=== PATIENT | male | born 1985 | race Caucasian/White ===

== ENCOUNTER 2016-11-16 22:06 | Emergency (ER) | payer MEDICAID ==
[2016-11-16] MEDS ORDERED: Sodium Chloride 0.9% 1,000 ML IV ONE (22:11)
[2016-11-16] MEDS ORDERED: methylPREDNISolone Sodium Succinate 125 MG/2 ML SDV IVPUSH ONE (22:11)
--- NOTE | 2016-11-16 22:19 | EDM.PDOC ---
ED HPI GENERAL MEDICAL PROBLEM - General Chief Complaint: Allergic Reaction Stated Complaint: ALLERGIC REACTION [id number] Time Seen by Provider: 11/16/16 22:17 Source of Information: Reports: Patient History Limitations: Reports: No Limitations - History of Present Illness INITIAL COMMENTS - FREE TEXT/NARRATIVE: states has recurrent h/o allergic reaction with unknown etiology, states IV benadryl make him cranky and doesn't want it. 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 Upper Lip Pain Score (Numeric/FACES): 4 - Related Data Allergies Allergy/AdvReac Type Severity Reaction Status Date / Time amoxicillin Allergy Anaphylactic Verified 11/16/16 22:36 Shock diphenhydramine Allergy Anxiety Verified 11/16/16 22:39 [From Benadryl] ketorolac [From Toradol] Allergy Chest Verified 11/16/16 22:39 Tightness metoclopramide [From Reglan] Allergy Anxiety Verified 11/16/16 22:39 Penicillins Allergy Anaphylactic Verified 11/16/16 22:39 Shock zolpidem [From Ambien] Allergy Hallucinati Verified 11/16/16 22:39 ons Home Meds: Home Meds . [No Known Home Meds] 11/16/16 [History] ED ROS ALLERGIC REACTION - Review of Systems Review Of Systems: ROS reveals no pertinent complaints other than HPI. ED EXAM GENERAL NO PERIP PULSE - Physical Exam Exam: See Below Exam Limited By: No Limitations General Appearance: Alert, WD/WN, Mild Distress, Other (lip swelling) Ears: Hearing Grossly Normal Throat/Mouth: Normal Voice, No Airway Compromise, Other (lips swollen, no drooling) Head: Atraumatic Neck: Non-Tender, Full Range of Motion Respiratory/Chest: No Respiratory Distress, No Accessory Muscle Use. No: Retractions, Splinting Cardiovascular: Regular Rate, Rhythm GI/Abdominal: Soft, Non-Tender Neurological: Alert, Oriented, Normal Cognition, Normal Gait, No Motor/Sensory Deficits Psychiatric: Tearful Skin Exam: Warm, Dry, Normal Color Lymphatic: No Adenopathy Course - Vital Signs Last Recorded V/S: Last Vital Signs Temp 36.3 C 11/16/16 22:56 Pulse 77 11/16/16 23:34 Resp 16 11/16/16 23:34 BP 150/79 H 11/16/16 23:34 Pulse Ox 98 11/16/16 23:34 - Orders/Labs/Meds Meds: Medications Discontinued Medications Generic Name Dose Route Start Last Admin Trade Name Armen PRN Reason Stop Dose Admin Dexamethasone 12 mg 11/16/16 23:47 11/16/16 23:55 Dexamethasone IVPUSH 11/16/16 23:48 12 mg ONETIME ONE Administration Famotidine 20 mg 11/16/16 23:05 11/16/16 23:10 Pepcid IVPUSH 11/16/16 23:06 20 mg ONETIME ONE Administration Hydroxyzine HCl 25 mg 11/16/16 23:47 11/16/16 23:55 Atarax PO 11/16/16 23:48 25 mg ONETIME ONE Administration Sodium Chloride 1,000 mls @ 999 mls/hr 11/16/16 22:11 11/16/16 22:21 Normal Saline IV 11/16/16 23:11 999 mls/hr .BOLUS ONE Administration Methylprednisolone Sodium Succinate 125 mg 11/16/16 22:11 11/16/16 22:17 Solu-Medrol IVPUSH 11/16/16 22:12 125 mg ONETIME ONE Administration Morphine Sulfate 2 mg 11/16/16 22:24 11/16/16 22:33 Morphine IVPUSH 11/16/16 22:25 2 mg ONETIME ONE Administration Ondansetron HCl 4 mg 11/16/16 22:24 11/16/16 22:33 Zofran IV 11/16/16 22:25 4 mg ONETIME ONE Administration - Re-Assessments/Exams Free Text/Narrative Re-Assessment/Exam: 11/17/16 00:44 re-exam; s/p atarax = much better Departure - Departure Time of Disposition: 00:44 Disposition: Home, Self-Care 01 Condition: Good Clinical Impression: Allergic reaction Qualifiers: Encounter type: initial encounter Qualified Code(s): T78.40XA - Allergy, unspecified, initial encounter - Discharge Information Instructions: Angioedema, [id number] Forms: ED Department Discharge Additional Instructions: 1) don't scratch rash too much 2) 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
[2016-11-16] MEDS ORDERED: Ondansetron 4 MG/2 ML SDV IV ONE (22:24)
[2016-11-16] MEDS ORDERED: Morphine 2 MG/ML Syringe IVPUSH ONE (22:24)
[2016-11-16] MEDS ORDERED: Famotidine 20 MG/2 ML SDV IVPUSH ONE (23:05)
[2016-11-16] MEDS ORDERED: Dexamethasone 4 MG/ML SDV IVPUSH ONE (23:47)
[2016-11-16] MEDS ORDERED: hydrOXYzine HCl 25 MG Tab PO ONE (23:47)
[2016-11-17 00:58] VITALS: BP 135/90
== END 2016-11-17 00:55 | disposition home or self-care (01) ==
LOC: DL.ED 22:06
DX: R22.0 Localized swelling, mass and lump, head (principal); T45.0X5A Adverse effect of antiallergic and antiemetic drugs, initial encounter; Z88.1 Allergy status to other antibiotic agents; Z88.8 Allergy status to other drugs, medicaments and biological substances; Z88.0 Allergy status to penicillin
CPT/HCPCS: 96361; 96374; 96375; 99284; A9270; J1100; J2270; J2405; J2930; J7030; S0028

== ENCOUNTER 2016-11-26 18:19 | Emergency (ER) | payer MEDICAID ==
[2016-11-26] MEDS ORDERED: Sodium Chloride 0.9% 1,000 ML IV ONE (18:46)
[2016-11-26] MEDS ORDERED: Dexamethasone 4 MG/ML SDV IVPUSH ONE (18:46)
--- NOTE | 2016-11-26 18:51 | EDM.PDOC ---
ED HPI GENERAL MEDICAL PROBLEM - General Chief Complaint: Allergic Reaction Stated Complaint: LIPS, CHEEK SWELLING [id number] Time Seen by Provider: 11/26/16 18:47 Source of Information: Reports: Patient History Limitations: Reports: No Limitations - History of Present Illness INITIAL COMMENTS - FREE TEXT/NARRATIVE: gives recurrent h/o edema on lower lip & inner cheeks. denies anything new. his mother does have local inflammatory edema on tatoo sites. - Related Data Allergies Allergy/AdvReac Type Severity Reaction Status Date / Time amoxicillin Allergy Anaphylactic Verified 11/16/16 22:36 Shock diphenhydramine Allergy Anxiety Verified 11/26/16 18:25 [From Benadryl] ketorolac [From Toradol] Allergy Chest Verified 11/16/16 22:39 Tightness metoclopramide [From Reglan] Allergy Anxiety Verified 11/16/16 22:39 Penicillins Allergy Anaphylactic Verified 11/16/16 22:39 Shock zolpidem [From Ambien] Allergy Hallucinati Verified 11/16/16 22:39 ons Home Meds: Home Meds Codeine/Butalbital/ASA/Caffein [Fiorinal-Cod [id number]] 1 cap PO ASDIRECTED PRN 11/26/16 [History] Past Medical History HEENT History: Reports: Impaired Vision Cardiovascular History: Reports: Heart Murmur, Other (See Below) Other Cardiovascular History: Palpatations in past. Gastrointestinal History: Reports: GERD Musculoskeletal History: Reports: Fracture Other Musculoskeletal History: L4-L6 fx. ankles neck, wrist. hands, upper Rt. arm, fx skull. Neurological History: Reports: Brain Injury, Concussion, Head Trauma, Migraines Psychiatric History: Reports: ADHD, Anxiety, Depression, Mood Swings, Panic Attack Hematologic History: Reports: Blood Transfusion(s) - Past Surgical History GI Surgical History: Reports: Colon, Other (See Below) Other GI Surgeries/Procedures: 3 inches of colon removed as a child. Social & Family History - Family History Family Medical History: Noncontributory - Tobacco Use Smoking Status *Q: Current Some Day Smoker Years of Tobacco use: 20 Packs/Tins Daily: 1.5 Second Hand Smoke Exposure: No - Caffeine Use Caffeine Use: Reports: Soda, Other Other Caffeine Use: energy drinks. - Recreational Drug Use Recreational Drug Use: No ED ROS ALLERGIC REACTION - Review of Systems Review Of Systems: ROS reveals no pertinent complaints other than HPI. ED EXAM GENERAL NO PERIP PULSE - Physical Exam Exam: See Below Exam Limited By: No Limitations General Appearance: Alert, WD/WN, Mild Distress, Other (discomfort) Ears: Hearing Grossly Normal Throat/Mouth: Normal Voice, No Airway Compromise, Other (lower lip inner left cheek mild edema, no drooling) Head: Atraumatic Neck: Non-Tender, Full Range of Motion Respiratory/Chest: No Respiratory Distress Cardiovascular: Regular Rate, Rhythm GI/Abdominal: Soft, Non-Tender Neurological: Alert, Oriented, Normal Cognition, Normal Gait, No Motor/Sensory Deficits Psychiatric: Normal Affect, Normal Mood Skin Exam: Warm, Dry, Normal Color Lymphatic: No Adenopathy Course - Vital Signs Last Recorded V/S: Last Vital Signs Temp 36.2 C 11/26/16 18:23 Pulse 71 11/26/16 18:23 Resp 16 11/26/16 18:23 BP 135/98 H 11/26/16 18:23 Pulse Ox 100 11/26/16 18:23 - Orders/Labs/Meds Orders: Active Orders 24 hr Category Date Time Status hydrOXYzine HCl [Atarax] Med 11/26/16 21:34 Once 25 mg PO ONETIME ONE Medication Orders Hydroxyzine HCl (Atarax) 25 mg PO ONETIME ONE Stop: 11/26/16 21:35 Labs: Laboratory Tests 11/26/16 11/26/16 11/26/16 Range/Units 18:54 18:54 18:54 WBC 9.3 (5.0-10.0) 10^3/uL RBC 5.09 (4.6-6.2) 10^6/uL Hgb 14.7 (14.0-18.0) g/dL Hct 43.7 (40.0-54.0) % MCV 85.9 (80-100) fL MCH 28.9 (27.0-34.0) pg MCHC 33.6 (33.0-35.0) g/dL Plt Count 254 (150-450) 10^3/uL Neut % (Auto) 45.2 (42.2-75.2) % Lymph % (Auto) 39.8 (20.5-50.1) % [place] % (Auto) 9.3 H (2-8) % Eos % (Auto) 5.5 H (1.0-3.0) % Baso % (Auto) 0.2 (0.0-1.0) % Sodium 138 (135-145) mmol/L Potassium 4.2 (3.6-5.0) mmol/L Chloride 105 (101-111) mmol/L Carbon Dioxide 22.0 (21.0-31.0) mmol/L Anion Gap 15.2 BUN 19 H (7-18) mg/dL Creatinine 1.0 (0.6-1.3) mg/dL Est Cr Clr Drug Dosing TNP Estimated GFR (MDRD) > 60 BUN/Creatinine Ratio 19.00 Glucose 90 (74-105) mg/dL Calcium 8.7 (8.4-10.2) mg/dl Total Bilirubin 0.6 (0.2-1.0) mg/dL AST 24 (10-42) IU/L ALT 25 (10-60) IU/L Alkaline Phosphatase 65 (42-121) IU/L C-Reactive Protein 0.7 (0.0-1.3) mg/dL Total Protein 6.6 L (6.7-8.2) g/dl Albumin 3.7 (3.2-5.5) g/dl Globulin 2.9 Albumin/Globulin Ratio 1.28 Meds: Medications Generic Name Dose Route Start Last Admin Trade Name Freq PRN Reason Stop Dose Admin Hydroxyzine HCl 25 mg 11/26/16 21:34 Atarax PO 11/26/16 21:35 ONETIME ONE Discontinued Medications Generic Name Dose Route Start Last Admin Trade Name Freq PRN Reason Stop Dose Admin Dexamethasone 12 mg 11/26/16 18:46 11/26/16 18:57 Dexamethasone IVPUSH 11/26/16 18:47 12 mg ONETIME ONE Administration Sodium Chloride 1,000 mls @ 500 mls/hr 11/26/16 18:46 11/26/16 18:56 Normal Saline IV 11/26/16 20:45 500 mls/hr .BOLUS ONE Administration Methylprednisolone Sodium Succinate 125 mg 11/26/16 20:46 11/26/16 20:59 Solu-Medrol IVPUSH 11/26/16 20:47 125 mg ONETIME ONE Administration Morphine Sulfate 2 mg 11/26/16 20:25 11/26/16 20:40 Morphine IVPUSH 11/26/16 20:26 2 mg ONETIME ONE Administration Ondansetron HCl 4 mg 11/26/16 20:25 11/26/16 20:40 Zofran IV 11/26/16 20:26 4 mg ONETIME ONE Administration - Re-Assessments/Exams Free Text/Narrative Re-Assessment/Exam: 11/26/16 20:46 results discussed with pt who states lip swelling starting to return now. 11/26/16 21:35 feels somewhat better Departure - Departure Time of Disposition: 21:37 Disposition: Home, Self-Care 01 Condition: Good Clinical Impression: Angioedema Qualifiers: Encounter type: subsequent encounter Qualified Code(s): T78.3XXD - Angioneurotic edema, subsequent encounter - Discharge Information Instructions: Angioedema, [id number] Forms: ED Department Discharge Additional Instructions: 1) follow up at clinic or recheck if there is any change or concern rx given; atarax 25mg bid prn x 12 - My Orders Last 24 Hours: My Active Orders 11/26/16 21:34 hydrOXYzine HCl [Atarax] 25 mg PO ONETIME ONE - Assessment/Plan Last 24 Hours: My Active Orders 11/26/16 21:34 hydrOXYzine HCl [Atarax] 25 mg PO ONETIME ONE
[2016-11-26 18:57] VITALS: BP 135/98
[2016-11-26 19:20] LABS: CHLORIDE,CL 105 mmol/L (101-111); SODIUM,NA 138 mmol/L (135-145)
[2016-11-26] MEDS ORDERED: Morphine 2 MG/ML Syringe IVPUSH ONE (20:25)
[2016-11-26] MEDS ORDERED: Ondansetron 4 MG/2 ML SDV IV ONE (20:25)
[2016-11-26] MEDS ORDERED: methylPREDNISolone Sodium Succinate 125 MG/2 ML SDV IVPUSH ONE (20:46)
[2016-11-26] MEDS ORDERED: hydrOXYzine HCl 25 MG Tab PO ONE (21:34)
== END 2016-11-26 21:43 | disposition home or self-care (01) ==
LOC: DL.ED 18:19
DX: T78.3XXA Angioneurotic edema, initial encounter (principal); H54.7 Unspecified visual loss; K21.9 Gastro-esophageal reflux disease without esophagitis; F17.210 Nicotine dependence, cigarettes, uncomplicated; Z88.0 Allergy status to penicillin; Z88.1 Allergy status to other antibiotic agents; Z88.8 Allergy status to other drugs, medicaments and biological substances
CPT/HCPCS: 36415; 80053; 85025; 86140; 96361; 96374; 96375; 99282; A9270; J1100; J2270; J2405; J2930; J7030

== ENCOUNTER 2016-12-05 00:50 | Emergency (ER) | payer MEDICAID ==
[2016-12-05 01:02] VITALS: BP 147/103
[2016-12-05] MEDS ORDERED: hydrOXYzine HCl 25 MG Tab PO ONE (01:12)
--- NOTE | 2016-12-05 01:15 | EDM.PDOC ---
ED HPI GENERAL MEDICAL PROBLEM - General Chief Complaint: ENT Problem Stated Complaint: SWELLING IN MOUTH AND THROAT Time Seen by Provider: 12/05/16 01:05 Source of Information: Reports: Patient History Limitations: Reports: No Limitations - History of Present Illness INITIAL COMMENTS - FREE TEXT/NARRATIVE: This 30 yo male patient reports to the ED with swelling in the left side of his throat and in his tongue. The patient reports he started to notice swelling at about 2230 last night. The patient reports he has an appointment next Thursday with a provider at the clinic for continued evaluation and management (the patient does not know the name of the provider). Onset Date: 12/04/16 Onset Time: 22:30 Duration: Constant Location: Reports: Face, Neck Quality: Reports: Dull, Pressure Severity: Moderate Improves with: Reports: None Worsens with: Reports: None Associated Symptoms: Reports: No Other Symptoms Oral/Mouth Pain Score (Numeric/FACES): 4 - Related Data Allergies Allergy/AdvReac Type Severity Reaction Status Date / Time amoxicillin Allergy Anaphylactic Verified 12/05/16 00:56 Shock diphenhydramine Allergy Anxiety Verified 12/05/16 00:56 [From Benadryl] ketorolac [From Toradol] Allergy Chest Verified 12/05/16 00:56 Tightness metoclopramide [From Reglan] Allergy Anxiety Verified 12/05/16 00:56 Penicillins Allergy Anaphylactic Verified 12/05/16 00:56 Shock zolpidem [From Ambien] Allergy Hallucinati Verified 12/05/16 00:56 ons Home Meds: Home Meds Codeine/Butalbital/ASA/Caffein [Fiorinal-Cod [id number]] 1 cap PO ASDIRECTED PRN 11/26/16 [History] hydrOXYzine HCl [Atarax] 25 mg PO BID 12/05/16 [History] Past Medical History HEENT History: Reports: Impaired Vision Cardiovascular History: Reports: Heart Murmur, Other (See Below) Other Cardiovascular History: Palpatations in past. Gastrointestinal History: Reports: GERD Musculoskeletal History: Reports: Fracture Other Musculoskeletal History: L4-L6 fx. ankles neck, wrist. hands, upper Rt. arm, fx skull. Neurological History: Reports: Brain Injury, Concussion, Head Trauma, Migraines Psychiatric History: Reports: ADHD, Anxiety, Depression, Mood Swings, Panic Attack Hematologic History: Reports: Blood Transfusion(s) - Past Surgical History GI Surgical History: Reports: Colon, Other (See Below) Other GI Surgeries/Procedures: 3 inches of colon removed as a child. Social & Family History - Family History Family Medical History: Noncontributory - Tobacco Use Smoking Status *Q: Current Some Day Smoker Years of Tobacco use: 20 Packs/Tins Daily: 1.5 Second Hand Smoke Exposure: No - Caffeine Use Caffeine Use: Reports: Soda, Other Other Caffeine Use: energy drinks. - Recreational Drug Use Recreational Drug Use: No ED ROS ENT - Review of Systems Review Of Systems: ROS reveals no pertinent complaints other than HPI. ED EXAM, ENT - Physical Exam Exam: See Below Exam Limited By: No Limitations General Appearance: Alert, WD/WN, Mild Distress Eye Exam: Bilateral Eye: EOMI, Normal Inspection, PERRL Ears: Normal External Exam, Normal Canal, Hearing Grossly Normal, Normal TMs Nose: Normal Inspection, Normal Mucousa, No Blood Mouth/Throat: Normal Inspection, Normal Gums, Normal Lips, Normal Oropharynx, Normal Teeth, Other (no swelling noticed) Head: Atraumatic, Normocephalic Neck: Normal Inspection, Supple, Non-Tender, Full Range of Motion, Other (no swelling palpated) Respiratory/Chest: No Respiratory Distress, Lungs Clear, Normal Breath Sounds, No Accessory Muscle Use, Chest Non-Tender Cardiovascular: Normal Peripheral Pulses, Regular Rate, Rhythm, No Edema, No Gallop, No JVD, No Murmur, No Rub GI/Abdominal: Normal Bowel Sounds, Soft, Non-Tender, No Organomegaly, No Distention, No Abnormal Bruit, No Mass (Male) Exam: Deferred Rectal (Males) Exam: Deferred Back: Normal Inspection, Full Range of Motion Extremities: Normal Inspection, Normal Range of Motion, Non-Tender, No Pedal Edema, Normal Capillary Refill Neurological: Alert, Oriented, CN II-XII Intact, Normal Cognition, Normal Gait, Normal Reflexes, No Motor/Sensory Deficits Psychiatric: Normal Affect, Normal Mood Skin: Warm, Dry, Intact, Normal Color, No Rash Lymphatic: No Adenopathy Course - Vital Signs Last Recorded V/S: Last Vital Signs Temp 36.9 C 12/05/16 01:00 Pulse 90 12/05/16 01:00 Resp 20 12/05/16 01:00 BP 147/103 H 12/05/16 01:00 Pulse Ox 99 12/05/16 01:00 - Orders/Labs/Meds Meds: Medications Discontinued Medications Generic Name Dose Route Start Last Admin Trade Name Armen PRN Reason Stop Dose Admin Hydroxyzine HCl 25 mg 12/05/16 01:12 Atarax PO 12/05/16 01:13 ONETIME ONE Departure - Departure Time of Disposition: :13 Disposition: Home, Self-Care 01 Condition: Fair Clinical Impression: Angioedema Qualifiers: Encounter type: subsequent encounter Qualified Code(s): T78.3XXD - Angioneurotic edema, subsequent encounter - Discharge Information Forms: ED Department Discharge Care Plan Goals: The patient was advised of the examination results during the visit. The patient was given an oral dose of Atarax (25 mg) while in the ED. The patient was advised to follow-up with his primary care facility tomorrow for continued evaluation and further management. If the patient has any additional symptoms or concerns, the patient should visit his primary care facility or return to the emergency department.
== END 2016-12-05 01:24 | disposition home or self-care (01) ==
LOC: DL.ED 00:50
DX: T78.3XXD Angioneurotic edema, subsequent encounter (principal); H54.7 Unspecified visual loss; K21.9 Gastro-esophageal reflux disease without esophagitis; G43.909 Migraine, unspecified, not intractable, without status migrainosus; F17.210 Nicotine dependence, cigarettes, uncomplicated; Z88.1 Allergy status to other antibiotic agents; Z88.8 Allergy status to other drugs, medicaments and biological substances; Z88.0 Allergy status to penicillin
CPT/HCPCS: 99283; A9270

== ENCOUNTER 2016-12-11 05:05 | Emergency (ER) | payer MEDICAID ==
[2016-12-11] MEDS ORDERED: methylPREDNISolone Sodium Succinate 125 MG/2 ML SDV IVPUSH ONE (05:16)
[2016-12-11] MEDS ORDERED: Famotidine 20 MG/2 ML SDV IVPUSH ONE (05:17)
[2016-12-11] MEDS ORDERED: Sodium Chloride 0.9% 1,000 ML IV SCH (05:30)
[2016-12-11 05:53] LABS: CHLORIDE,CL 105 mmol/L (101-111); SODIUM,NA 140 mmol/L (135-145)
--- NOTE | 2016-12-11 06:04 | EDM.PDOC ---
<Mary Tao - Last Filed: 12/11/16 06:42> ED HPI GENERAL MEDICAL PROBLEM - General Chief Complaint: ENT Problem Stated Complaint: TONGUE IS SWOLLEN [id number] Time Seen by Provider: 12/11/16 05:20 Source of Information: Reports: Patient History Limitations: Reports: No Limitations - History of Present Illness INITIAL COMMENTS - FREE TEXT/NARRATIVE: ED with c/o of waking with tongue swelling at 4 am. Hx multiple similar episodes in past month. Undetermined cause. Has not changed iet or eaten any spicy food. Only medication is zantac. No respiratory difficulties. Pain with movement of tongue. No rash or itching Oral/Mouth Pain Score (Numeric/FACES): 4 - Related Data Allergies Allergy/AdvReac Type Severity Reaction Status Date / Time amoxicillin Allergy Anaphylactic Verified 12/11/16 05:10 Shock diphenhydramine Allergy Anxiety Verified 12/11/16 05:10 [From Benadryl] ketorolac [From Toradol] Allergy Chest Verified 12/11/16 05:10 Tightness metoclopramide [From Reglan] Allergy Anxiety Verified 12/11/16 05:10 Penicillins Allergy Anaphylactic Verified 12/11/16 05:10 Shock zolpidem [From Ambien] Allergy Hallucinati Verified 12/11/16 05:10 ons Home Meds: Home Meds Ranitidine HCl [Zantac 75] 75 mg PO DAILY 12/11/16 [History] Past Medical History HEENT History: Reports: Impaired Vision Cardiovascular History: Reports: Heart Murmur, Other (See Below) Other Cardiovascular History: Palpatations in past. Gastrointestinal History: Reports: GERD Musculoskeletal History: Reports: Fracture Other Musculoskeletal History: L4-L6 fx. ankles neck, wrist. hands, upper Rt. arm, fx skull. Neurological History: Reports: Brain Injury, Concussion, Head Trauma, Migraines Psychiatric History: Reports: ADHD, Anxiety, Depression, Mood Swings, Panic Attack Hematologic History: Reports: Blood Transfusion(s) - Infectious Disease History Infectious Disease History: Reports: Chicken Pox - Past Surgical History GI Surgical History: Reports: Colon, Other (See Below) Other GI Surgeries/Procedures: 3 inches of colon removed as a child. Social & Family History - Family History Family Medical History: Noncontributory - Tobacco Use Smoking Status *Q: Current Some Day Smoker Years of Tobacco use: 20 Packs/Tins Daily: 1.5 Tobacco Use Comment: vapor pen Second Hand Smoke Exposure: No - Caffeine Use Caffeine Use: Reports: Soda, Other Other Caffeine Use: energy drinks. - Recreational Drug Use Recreational Drug Use: No ED ROS ENT - Review of Systems Review Of Systems: ROS reveals no pertinent complaints other than HPI. ED EXAM, ENT - Physical Exam Exam: See Below Exam Limited By: No Limitations General Appearance: Alert, Mild Distress Eye Exam: Bilateral Eye: EOMI Ears: Normal External Exam, Normal TMs Nose: Normal Inspection Mouth/Throat: Muffled Voice, Other (tongue swollen, geopgraphic). No: Normal Inspection, Lip Swelling Head: Atraumatic, Normocephalic Neck: Normal Inspection, Non-Tender, Full Range of Motion Respiratory/Chest: No Respiratory Distress, Lungs Clear, Normal Breath Sounds Cardiovascular: Normal Peripheral Pulses, Regular Rate, Rhythm, Tachycardia Extremities: Normal Inspection Neurological: Alert, Oriented, Normal Cognition Psychiatric: Anxious (mild) Skin: Warm, Dry, Intact, Normal Color Course - Vital Signs Last Recorded V/S: Last Vital Signs Temp 36.3 C 12/11/16 07:33 Pulse 75 12/11/16 07:33 Resp 18 12/11/16 07:33 BP 141/99 H 12/11/16 07:33 Pulse Ox 100 12/11/16 07:33 - Orders/Labs/Meds Orders: Active Orders 24 hr Category Date Time Status Sodium Chloride 0.9% [Normal Saline] 1,000 ml Med 12/11/16 05:30 Active IV ASDIRECTED Medication Orders Sodium Chloride (Normal Saline) 1,000 mls @ 999 mls/hr IV ASDIRECTED ABBY Last Admin: 12/11/16 05:26 Dose: 999 mls/hr Labs: Laboratory Tests 12/11/16 12/11/16 12/11/16 Range/Units 05:28 05:28 05:28 WBC 7.8 (5.0-10.0) 10^3/uL RBC 5.10 (4.6-6.2) 10^6/uL Hgb 14.8 (14.0-18.0) g/dL Hct 43.9 (40.0-54.0) % MCV 86.1 (80-100) fL MCH 29.0 (27.0-34.0) pg MCHC 33.7 (33.0-35.0) g/dL Plt Count 274 (150-450) 10^3/uL Neut % (Auto) 57.8 (42.2-75.2) % Lymph % (Auto) 25.9 (20.5-50.1) % [place] % (Auto) 7.5 (2-8) % Eos % (Auto) 8.4 H (1.0-3.0) % Baso % (Auto) 0.4 (0.0-1.0) % Sodium 140 (135-145) mmol/L Potassium 4.2 (3.6-5.0) mmol/L Chloride 105 (101-111) mmol/L Carbon Dioxide 24.0 (21.0-31.0) mmol/L Anion Gap 15.2 BUN 13 (7-18) mg/dL Creatinine 1.2 (0.6-1.3) mg/dL Est Cr Clr Drug Dosing 92.94 mL/min Estimated GFR (MDRD) > 60 BUN/Creatinine Ratio 10.83 Glucose 97 (74-105) mg/dL Calcium 9.1 (8.4-10.2) mg/dl Total Bilirubin 1.3 H (0.2-1.0) mg/dL AST 45 H (10-42) IU/L ALT 57 (10-60) IU/L Alkaline Phosphatase 70 (42-121) IU/L C-Reactive Protein 0.6 (0.0-1.3) mg/dL Total Protein 7.0 (6.7-8.2) g/dl Albumin 4.0 (3.2-5.5) g/dl Globulin 3.0 Albumin/Globulin Ratio 1.33 Meds: Medications Generic Name Dose Route Start Last Admin Trade Name Freq PRN Reason Stop Dose Admin Sodium Chloride 1,000 mls @ 999 mls/hr 12/11/16 05:30 12/11/16 05:26 Normal Saline IV 999 mls/hr ASDIRECTED ABBY Administration Discontinued Medications Generic Name Dose Route Start Last Admin Trade Name Freq PRN Reason Stop Dose Admin Al Hydroxide/Mg Hydroxide 15 ml 12/11/16 06:11 12/11/16 06:17 Gi Cocktail PO 12/11/16 06:12 15 ml ONETIME ONE Administration Famotidine 20 mg 12/11/16 05:17 12/11/16 05:26 Pepcid IVPUSH 12/11/16 05:18 20 mg ONETIME ONE Administration Methylprednisolone Sodium Succinate 125 mg 12/11/16 05:16 12/11/16 05:27 Solu-Medrol IVPUSH 12/11/16 05:17 125 mg ONETIME ONE Administration - Re-Assessments/Exams Free Text/Narrative Re-Assessment/Exam: 12/11/16 06:42 Decreased pain in tongue with viscous Lidocaine. No change in swelling. Airway patent, tolerating ice chips 12/11/16 06:[address] Luna with shift change Departure - Departure Disposition: Home, Self-Care 01 Clinical Impression: Angioedema Qualifiers: Encounter type: subsequent encounter Qualified Code(s): T78.3XXD - Angioneurotic edema, subsequent encounter - Discharge Information Forms: ED Department Discharge Additional Instructions: Rest Monitor any items placed into mouth Take the medication ( Hydroxyzine 50mg TID) # 30 F/U w/ PCP for referral to specialist <Kendrick Luna - Last Filed: 12/11/16 07:44> Departure - Departure Time of Disposition: 07:41 Condition: Good
[2016-12-11] MEDS ORDERED: GI Cocktail Oral Solution 30 ML PO ONE (06:11)
[2016-12-11 07:34] VITALS: BP 141/99
== END 2016-12-11 08:04 | disposition home or self-care (01) ==
LOC: DL.ED 05:05
DX: T78.3XXD Angioneurotic edema, subsequent encounter (principal); F17.210 Nicotine dependence, cigarettes, uncomplicated; Z88.1 Allergy status to other antibiotic agents; Z88.0 Allergy status to penicillin; Z88.8 Allergy status to other drugs, medicaments and biological substances
CPT/HCPCS: 36415; 80053; 85025; 86140; 96361; 96374; 96375; 99283; A9270; J2930; J7030; S0028

== ENCOUNTER 2016-12-26 17:29 | Emergency (ER) | payer MEDICAID ==
[2016-12-26] MEDS ORDERED: methylPREDNISolone Sodium Succinate 125 MG/2 ML SDV IVPUSH ONE ×2 (17:39→18:57)
--- NOTE | 2016-12-26 18:13 | EDM.PDOC ---
<Oneil Tidwell M - Last Filed: 12/26/16 18:32> ED HPI GENERAL MEDICAL PROBLEM - General Chief Complaint: Allergic Reaction Stated Complaint: SWELLING ON LIP AND BACK OF THROAT, [id number] Time Seen by Provider: 12/26/16 18:02 Source of Information: Reports: Patient History Limitations: Reports: No Limitations - History of Present Illness INITIAL COMMENTS - FREE TEXT/NARRATIVE: This 31 yo male patient returns to the ED with swelling of his right lower lip and posterior throat. The patient reports he has been taking his Hydroxyzine on a regular basis. The patient report he was at home all day, ate a couple of hot dogs and drank a Sunkist today. The patient has been seen in the ED 2 times this month with similar symptoms. The patient reports he is still waiting to be seen by an communicable disease specialist. The patient reports he took some ibuprofen earlier today for the pain in his right lip, but got no relief. Onset: Today Duration: Hour(s):, Constant, Getting Worse Location: Reports: Face, Neck Quality: Reports: Ache, Pressure Severity: Moderate Improves with: Reports: None Worsens with: Reports: None Associated Symptoms: Reports: No Other Symptoms Right Lip Pain Score (Numeric/FACES): 8 Left Throat Pain Score (Numeric/FACES): 8 - Related Data Allergies Allergy/AdvReac Type Severity Reaction Status Date / Time amoxicillin Allergy Anaphylactic Verified 12/11/16 05:10 Shock diphenhydramine Allergy Anxiety Verified 12/11/16 05:10 [From Benadryl] ketorolac [From Toradol] Allergy Chest Verified 12/11/16 05:10 Tightness metoclopramide [From Reglan] Allergy Anxiety Verified 12/11/16 05:10 Penicillins Allergy Anaphylactic Verified 12/11/16 05:10 Shock zolpidem [From Ambien] Allergy Hallucinati Verified 12/11/16 05:10 ons vicous lidocaine AdvReac Intermediate Vomiting Uncoded 12/26/16 18:29 Home Meds: Home Meds Ranitidine HCl [Zantac 75] 75 mg PO BID 12/11/16 [History] hydrOXYzine HCl [Atarax] 1 tab PO BID 12/26/16 [History] Past Medical History HEENT History: Reports: Impaired Vision Cardiovascular History: Reports: Heart Murmur, Other (See Below) Other Cardiovascular History: Palpatations in past. Gastrointestinal History: Reports: GERD Musculoskeletal History: Reports: Fracture Other Musculoskeletal History: L4-L6 fx. ankles neck, wrist. hands, upper Rt. arm, fx skull. Neurological History: Reports: Brain Injury, Concussion, Head Trauma, Migraines Psychiatric History: Reports: ADHD, Anxiety, Depression, Mood Swings, Panic Attack Hematologic History: Reports: Blood Transfusion(s) - Infectious Disease History Infectious Disease History: Reports: Chicken Pox - Past Surgical History GI Surgical History: Reports: Colon, Other (See Below) Other GI Surgeries/Procedures: 3 inches of colon removed as a child. Social & Family History - Family History Family Medical History: Noncontributory - Tobacco Use Smoking Status *Q: Current Some Day Smoker Years of Tobacco use: 20 Packs/Tins Daily: 1.5 Second Hand Smoke Exposure: No - Caffeine Use Caffeine Use: Reports: Soda, Other Other Caffeine Use: energy drinks. - Recreational Drug Use Recreational Drug Use: No ED ROS ALLERGIC REACTION - Review of Systems Review Of Systems: ROS reveals no pertinent complaints other than HPI. ED EXAM GENERAL NO PERIP PULSE - Physical Exam Exam: See Below Exam Limited By: No Limitations General Appearance: Alert, WD/WN, Mild Distress Eye Exam: Bilateral Eye: EOMI, Normal Inspection, PERRL Ears: Normal External Exam, Normal Canal, Hearing Grossly Normal, Normal TMs Nose: Normal Inspection, Normal Mucosa, No Blood Throat/Mouth: Other (The patient has swelling in his right lower lip. The patient also has numerous dental caries and a chipped tooth (Right upper)) Head: Atraumatic, Normocephalic Neck: Normal Inspection, Supple, Non-Tender, Full Range of Motion Respiratory/Chest: No Respiratory Distress, Lungs Clear, Normal Breath Sounds, No Accessory Muscle Use, Chest Non-Tender Cardiovascular: Normal Peripheral Pulses, Regular Rate, Rhythm, No Edema, No Gallop, No JVD, No Murmur, No Rub GI/Abdominal: Normal Bowel Sounds, Soft, Non-Tender, No Organomegaly, No Distention, No Abnormal Bruit, No Mass (Male) Exam: Deferred Rectal (Males) Exam: Deferred Back Exam: Normal Inspection, Full Range of Motion, NT Extremities: Normal Inspection, Normal Range of Motion, Non-Tender, Normal Capillary Refill, No Pedal Edema Neurological: Alert, Oriented, CN II-XII Intact, Normal Cognition, Normal Gait, Normal Reflexes, No Motor/Sensory Deficits Psychiatric: Normal Affect, Normal Mood Skin Exam: Warm, Dry, Intact, Normal Color, No Rash Lymphatic: No Adenopathy Course - Vital Signs Last Recorded V/S: Last Vital Signs Temp 36.9 C 12/26/16 17:34 Pulse 81 12/26/16 17:34 Resp 18 12/26/16 17:34 BP 155/89 H 12/26/16 17:34 Pulse Ox 100 12/26/16 17:34 - Orders/Labs/Meds Meds: Medications Discontinued Medications Generic Name Dose Route Start Last Admin Trade Name Freq PRN Reason Stop Dose Admin Famotidine 20 mg 12/26/16 18:15 12/26/16 18:23 Pepcid IVPUSH 12/26/16 18:16 20 mg ONETIME ONE Administration Lidocaine HCl 15 ml 12/26/16 18:16 12/26/16 18:28 Xylocaine 2% Viscous PO 12/26/16 18:17 Not Given ONETIME ONE Methylprednisolone Sodium Succinate 125 mg 12/26/16 17:39 12/26/16 17:44 Solu-Medrol IVPUSH 12/26/16 17:40 125 mg ONETIME ONE Administration Methylprednisolone Sodium Succinate 125 mg 12/26/16 18:57 12/26/16 19:07 Solu-Medrol IVPUSH 12/26/16 18:58 125 mg ONETIME ONE Administration Departure - Departure Disposition: Home, Self-Care 01 Clinical Impression: Angioedema Qualifiers: Encounter type: subsequent encounter Qualified Code(s): T78.3XXD - Angioneurotic edema, subsequent encounter - Discharge Information Instructions: Allergies Forms: ED Department Discharge Additional Instructions: 1) follow up with [facility]ist [facility] 2) return if there is any change or concern rx givne; medrol dospak <Harman Alexandra - Last Filed: 12/26/16 20:00> Course - Re-Assessments/Exams Free Text/Narrative Re-Assessment/Exam: 12/26/16 18:58 re-exam; s/p IV solumed = better initially but now swelling returning. has appt next month with DDS and has magnet maker appt' in 2 months. 12/26/16 19:59 re-exam; s/p IV solu = much better with lip swelling decreased. Departure - Departure Time of Disposition: 19:59 Condition: Good
[2016-12-26] MEDS ORDERED: Famotidine 20 MG/2 ML SDV IVPUSH ONE (18:15)
[2016-12-26] MEDS ORDERED: Lidocaine 2% Viscous Solution 15 ML Cup PO ONE (18:16)
[2016-12-26 20:08] VITALS: BP 148/99
== END 2016-12-26 20:05 | disposition home or self-care (01) ==
LOC: DL.ED 17:29
DX: T78.3XXD Angioneurotic edema, subsequent encounter (principal); K21.9 Gastro-esophageal reflux disease without esophagitis; F41.9 Anxiety disorder, unspecified; F32.9 Major depressive disorder, single episode, unspecified; F17.210 Nicotine dependence, cigarettes, uncomplicated; Z88.0 Allergy status to penicillin; Z88.1 Allergy status to other antibiotic agents; Z88.8 Allergy status to other drugs, medicaments and biological substances
CPT/HCPCS: 96374; 96375; 96376; 99283; J2930; S0028

== ENCOUNTER 2017-01-06 01:42 | Emergency (ER) | payer OTHER, MEDICAID ==
[2017-01-06] MEDS ORDERED: Acetaminophen/HYDROcodone 325-10 MG Tab PO ONE ×2 (01:43→02:30)
[2017-01-06] MEDS ORDERED: Cyclobenzaprine 10 MG Tab PO ONE (01:43)
--- NOTE | 2017-01-06 02:26 | EDM.PDOC ---
ED HPI GENERAL MEDICAL PROBLEM - General Chief Complaint: Back Pain or Injury Stated Complaint: BACK PAIN, HURT AT WORK [id number] Time Seen by Provider: 01/06/17 02:20 Source of Information: Reports: Patient History Limitations: Reports: No Limitations - History of Present Illness INITIAL COMMENTS - FREE TEXT/NARRATIVE: C/o pain to left lower back, started while at work. 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 Denies numbness or tingling. No weakness. Prior remote hx of back injury to muscles but nothing to vertebra. Has not had problems with back until tonight. Left Lower Back Pain Score (Numeric/FACES): 8 - Related Data Allergies Allergy/AdvReac Type Severity Reaction Status Date / Time amoxicillin Allergy Anaphylactic Verified 01/06/17 02:30 Shock diphenhydramine Allergy Anxiety Verified 01/06/17 02:30 [From Benadryl] ketorolac [From Toradol] Allergy Chest Verified 01/06/17 02:30 Tightness metoclopramide [From Reglan] Allergy Anxiety Verified 01/06/17 02:30 Penicillins Allergy Anaphylactic Verified 01/06/17 02:30 Shock zolpidem [From Ambien] Allergy Hallucinati Verified 01/06/17 02:30 ons vicous lidocaine AdvReac Intermediate Vomiting Uncoded 01/06/17 02:30 Home Meds: Home Meds Ranitidine HCl [Zantac 75] 75 mg PO BID 12/11/16 [History] hydrOXYzine HCl [Atarax] 1 tab PO BID 12/26/16 [History] Past Medical History HEENT History: Reports: Impaired Vision Cardiovascular History: Reports: Heart Murmur, Other (See Below) Other Cardiovascular History: Palpatations in past. Gastrointestinal History: Reports: GERD Musculoskeletal History: Reports: Fracture Other Musculoskeletal History: L4-L6 fx. ankles neck, wrist. hands, upper Rt. arm, fx skull. Neurological History: Reports: Brain Injury, Concussion, Head Trauma, Migraines Psychiatric History: Reports: ADHD, Anxiety, Depression, Mood Swings, Panic Attack Hematologic History: Reports: Blood Transfusion(s) - Infectious Disease History Infectious Disease History: Reports: Chicken Pox - Past Surgical History GI Surgical History: Reports: Colon, Other (See Below) Other GI Surgeries/Procedures: 3 inches of colon removed as a child. Social & Family History - Family History Family Medical History: Noncontributory - Tobacco Use Smoking Status *Q: Current Some Day Smoker Years of Tobacco use: 20 Packs/Tins Daily: 1.5 Second Hand Smoke Exposure: No - Caffeine Use Caffeine Use: Reports: Soda, Other Other Caffeine Use: energy drinks. - Recreational Drug Use Recreational Drug Use: No ED ROS GENERAL - Review of Systems Review Of Systems: See Below Constitutional: Reports: No Symptoms HEENT: Reports: No Symptoms Respiratory: Reports: No Symptoms Cardiovascular: Reports: No Symptoms GI/Abdominal: Reports: No Symptoms Musculoskeletal: Reports: Back Pain. Denies: Foot Pain ED EXAM,LOWER BACK PAIN/INJURY - Physical Exam Exam: See Below Exam Limited By: No Limitations General Appearance: Alert, Moderate Distress Eye Exam: Bilateral Eye: PERRL Ears: Normal External Exam Nose: Normal Inspection Throat/Mouth: Normal Voice Head: Atraumatic Neck: Normal Inspection Respiratory/Chest: No Respiratory Distress, Lungs Clear, Normal Breath Sounds Cardiovascular: Normal Peripheral Pulses, Regular Rate, Rhythm GI/Abdominal: Normal Bowel Sounds Back Exam: Muscle Spasm, Paraspinal Tenderness (left). No: CVA Tenderness (L), CVA Tenderness (R), Vertebral Tenderness Extremities: Normal Range of Motion, Other (equal strength bilateral lower extremities) Neurological: Alert, Normal Mood/Affect, Normal Dorsiflexion, Normal Plantar Flexion, Oriented x 3, Straight Leg Raise (L), Other (slight stoop with gait, guarded, slow.). No: Straight Leg Raise (R), Saddle Anesthesia Psychiatric: Normal Affect Skin Exam: Warm, Dry, Intact, Normal Color, No Rash Course - Vital Signs Last Recorded V/S: Last Vital Signs Temp 96.6 F 01/06/17 02:21 Pulse 109 H 01/06/17 02:21 Resp 20 01/06/17 02:21 BP 157/99 H 01/06/17 02:21 Pulse Ox 100 01/06/17 02:21 - Orders/Labs/Meds Meds: Medications Discontinued Medications Generic Name Dose Route Start Last Admin Trade Name Freq PRN Reason Stop Dose Admin Hydrocodone Bitart/Acetaminophen 1 tab 01/06/17 02:30 01/06/17 02:34 Chester 325-10 Mg PO 10/10/17 02:31 1 tab ONETIME ONE Administration Hydrocodone Bitart/Acetaminophen Confirm 01/06/17 02:39 Chester 325-10 Mg Administered 01/06/17 02:40 Dose 1 tab .ROUTE .STK-MED ONE Cyclobenzaprine HCl Confirm 01/06/17 02:39 Flexeril Administered 01/06/17 02:40 Dose 10 mg .ROUTE .STK-MED ONE Departure - Departure Time of Disposition: 02:37 Disposition: Home, Self-Care 01 Condition: Fair Clinical Impression: Low back pain Qualifiers: Chronicity: acute Back pain laterality: left Sciatica presence: without sciatica Qualified Code(s): M54.5 - Low back pain Strain, lumbosacral Qualifiers: Encounter type: initial encounter Qualified Code(s): S39.012A - Strain of muscle, fascia and tendon of lower back, initial encounter - Discharge Information Instructions: Back Injury Prevention, [id number], Back Pain, Adult, Easy-to- Read Forms: ED Department Discharge Additional Instructions: rest alternate heat and cold to low back ibuprofen 800mg every 8 hours as needed for back pin -0 moderate hydrocodone 10/325 one every 6 hours as needed #10 Flexeril 10mg one every 8 hours as needed for back spasm #8 Clinic flow up end of week urgent follow up if change in sensation, unable to control badder or bowels
[2017-01-06 02:29] VITALS: BP 157/99
[2017-01-06] MEDS ORDERED: Cyclobenzaprine 10 MG Tab ONE (02:39)
[2017-01-06] MEDS ORDERED: Acetaminophen/HYDROcodone 325-10 MG Tab ONE (02:39)
== END 2017-01-06 02:45 | disposition home or self-care (01) ==
LOC: DL.ED 01:42
DX: S39.012A Strain of muscle, fascia and tendon of lower back, initial encounter (principal); K21.9 Gastro-esophageal reflux disease without esophagitis; F17.210 Nicotine dependence, cigarettes, uncomplicated; Z88.8 Allergy status to other drugs, medicaments and biological substances; Z88.1 Allergy status to other antibiotic agents; Z88.0 Allergy status to penicillin; W19.XXXA Unspecified fall, initial encounter
CPT/HCPCS: 99283; A9270

== ENCOUNTER 2017-01-10 06:56 | Emergency (ER) | payer OTHER, MEDICAID ==
[2017-01-10 07:08] VITALS: BP 162/96
--- NOTE | 2017-01-10 07:33 | EDM.PDOC ---
ED HPI GENERAL MEDICAL PROBLEM - General Chief Complaint: Back Pain or Injury Stated Complaint: [id number] HURT BACK AT WORK Time Seen by Provider: 01/10/17 07:32 Source of Information: Reports: Patient History Limitations: Reports: No Limitations - History of Present Illness INITIAL COMMENTS - FREE TEXT/NARRATIVE: 31 yo white male c/o low back pain X 4 days after helping patient. Pt. seen in this ED and evaluated and given medications for pain. Onset Date: 01/06/17 Onset Time: 13:00 Duration: Day(s): Location: Reports: Back Quality: Reports: Ache Severity: Moderate Improves with: Reports: None Worsens with: Reports: None Context: Reports: Lifting Associated Symptoms: Reports: No Other Symptoms Treatments WIENER PACKER: Reports: NSAIDS (motrin) Left Lower Back Pain Score (Numeric/FACES): 9 - Related Data Allergies Allergy/AdvReac Type Severity Reaction Status Date / Time amoxicillin Allergy Anaphylactic Verified 01/06/17 02:30 Shock diphenhydramine Allergy Anxiety Verified 01/06/17 02:30 [From Benadryl] ketorolac [From Toradol] Allergy Chest Verified 01/06/17 02:30 Tightness metoclopramide [From Reglan] Allergy Anxiety Verified 01/06/17 02:30 Penicillins Allergy Anaphylactic Verified 01/06/17 02:30 Shock zolpidem [From Ambien] Allergy Hallucinati Verified 01/06/17 02:30 ons vicous lidocaine AdvReac Intermediate Vomiting Uncoded 01/06/17 02:30 Home Meds: Home Meds Ranitidine HCl [Zantac 75] 75 mg PO BID 12/11/16 [History] hydrOXYzine HCl [Atarax] 1 tab PO BID 12/26/16 [History] Past Medical History HEENT History: Reports: Impaired Vision Cardiovascular History: Reports: Heart Murmur, Other (See Below) Other Cardiovascular History: Palpatations in past. Gastrointestinal History: Reports: GERD Musculoskeletal History: Reports: Fracture Other Musculoskeletal History: L4-L6 fx. ankles neck, wrist. hands, upper Rt. arm, fx skull. Neurological History: Reports: Brain Injury, Concussion, Head Trauma, Migraines Psychiatric History: Reports: ADHD, Anxiety, Depression, Mood Swings, Panic Attack Hematologic History: Reports: Blood Transfusion(s) - Infectious Disease History Infectious Disease History: Reports: Chicken Pox - Past Surgical History GI Surgical History: Reports: Colon, Other (See Below) Other GI Surgeries/Procedures: 3 inches of colon removed as a child. Social & Family History - Family History Family Medical History: Noncontributory - Tobacco Use Smoking Status *Q: Current Every Day Smoker Years of Tobacco use: 20 Packs/Tins Daily: 0.1 Second Hand Smoke Exposure: No - Caffeine Use Caffeine Use: Reports: Energy Drinks, Soda, Tea Other Caffeine Use: energy drinks. - Recreational Drug Use Recreational Drug Use: No ED ROS GENERAL - Review of Systems Review Of Systems: See Below Constitutional: Reports: No Symptoms HEENT: Reports: No Symptoms Respiratory: Reports: No Symptoms Cardiovascular: Reports: No Symptoms Endocrine: Reports: No Symptoms GI/Abdominal: Reports: No Symptoms : Reports: No Symptoms Musculoskeletal: Reports: Back Pain (low) Skin: Reports: No Symptoms Neurological: Reports: No Symptoms Psychiatric: Reports: No Symptoms Hematologic/Lymphatic: Reports: No Symptoms Immunologic: Reports: No Symptoms ED EXAM,LOWER BACK PAIN/INJURY - Physical Exam Exam: See Below Exam Limited By: No Limitations General Appearance: Alert, No Apparent Distress Eye Exam: Bilateral Eye: PERRL Ears: Normal External Exam Nose: Normal Inspection Throat/Mouth: Normal Inspection Head: Atraumatic, Normocephalic Neck: Normal Inspection Respiratory/Chest: No Respiratory Distress, Lungs Clear Cardiovascular: Normal Peripheral Pulses, Regular Rate, Rhythm GI/Abdominal: Normal Bowel Sounds, Soft, Non-Tender Back Exam: Normal Inspection, Decreased Range of Motion, Paraspinal Tenderness Extremities: Normal Inspection, Normal Range of Motion Neurological: Alert, Normal Mood/Affect, Normal Dorsiflexion, CN II-XII Intact DTR - Lower Extremities: 2+: Knee (R), Knee (L) Psychiatric: Normal Affect, Normal Mood Skin Exam: Warm, Dry, Intact Lymphatic: No Adenopathy Course - Vital Signs Last Recorded V/S: Last Vital Signs Temp 36.2 C 01/10/17 07:06 Pulse 106 H 01/10/17 07:06 Resp 20 01/10/17 07:06 BP 162/96 H 01/10/17 07:06 Pulse Ox 100 01/10/17 07:06 - Orders/Labs/Meds Orders: Active Orders 24 hr Category Date Time Status Lumbar Spine 2 or 3V [CR] Urgent Exams 01/10/17 07:32 Ordered UA W/MICROSCOPIC [URIN] Stat Lab 01/10/17 07:32 Uncollected Labs: Laboratory Tests 01/10/17 Range/Units 08:13 Urine Color Yellow (YELLOW) Urine Appearance Clear (CLEAR) Urine pH 6.0 (5.0-9.0) Ur Specific Lind 1.015 (1.005-1.030) Urine Protein Negative (NEGATIVE) Urine Glucose (UA) Negative (NEGATIVE) Urine Ketones Negative (NEGATIVE) Urine Occult Blood Negative (NEGATIVE) Urine Nitrite Negative (NEGATIVE) Urine Bilirubin Negative (NEGATIVE) Urine Urobilinogen 0.2 (0.2-1.0) mg/dL Ur Leukocyte Esterase Negative (NEGATIVE) Departure - Departure Time of Disposition: 08:26 Disposition: Home, Self-Care 01 Condition: Good Clinical Impression: Strain of muscle, fascia and tendon of lower back, sequela - Discharge Information Forms: ED Department Discharge Additional Instructions: Your Back X-ray and Urine are normal Rest Apply the Pain Patch: LIDODERM 5% 12 Hours on then 12 Hours off # 10 Take the IBUPROFEN 800MG TID w/ Food only # 30 TAke the NEURONTIN 300mg at Bedtime # 10 F/U w/ Physical Therapy and your PCP - My Orders Last 24 Hours: My Active Orders 01/10/17 07:32 Lumbar Spine 2 or 3V [CR] Urgent UA W/MICROSCOPIC [URIN] Stat - Assessment/Plan Last 24 Hours: My Active Orders 01/10/17 07:32 Lumbar Spine 2 or 3V [CR] Urgent UA W/MICROSCOPIC [URIN] Stat
== END 2017-01-10 08:45 | disposition home or self-care (01) ==
LOC: DL.ED 06:56
DX: S39.012S Strain of muscle, fascia and tendon of lower back, sequela (principal); K21.9 Gastro-esophageal reflux disease without esophagitis; F17.210 Nicotine dependence, cigarettes, uncomplicated; F32.9 Major depressive disorder, single episode, unspecified; F41.9 Anxiety disorder, unspecified; Z88.1 Allergy status to other antibiotic agents; Z88.0 Allergy status to penicillin; Z88.5 Allergy status to narcotic agent; Z88.8 Allergy status to other drugs, medicaments and biological substances; X58.XXXS Exposure to other specified factors, sequela
CPT/HCPCS: 72100; 81001; 99283

== ENCOUNTER 2017-02-01 05:52 | Emergency (ER) | payer MEDICAID, OTHER ==
[2017-02-01] MEDS ORDERED: Sodium Chloride 0.9% 1,000 ML IV ONE (05:58)
[2017-02-01] MEDS ORDERED: methylPREDNISolone Sodium Succinate 125 MG/2 ML SDV IVPUSH ONE (05:58)
--- NOTE | 2017-02-01 06:01 | EDM.PDOC ---
ED HPI GENERAL MEDICAL PROBLEM - General Chief Complaint: Allergic Reaction Stated Complaint: TONGUE AND LIP SWOLLEN [id number] Time Seen by Provider: 02/01/17 05:55 Source of Information: Reports: Patient History Limitations: Reports: No Limitations - History of Present Illness INITIAL COMMENTS - FREE TEXT/NARRATIVE: 31 yo white male c/o recurrent tongue swelling, when sitting watching TV and drinking water, unknown cause. Pt. 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 Previous episode 2016 Onset: Today Onset Date: 02/01/17 Onset Time: 03:00 Duration: Hour(s):, Recurring Location: Reports: Face Quality: Reports: Pressure Severity: Moderate Improves with: Reports: Medication Worsens with: Reports: None Associated Symptoms: Reports: No Other Symptoms - Related Data Allergies Allergy/AdvReac Type Severity Reaction Status Date / Time amoxicillin Allergy Anaphylactic Verified 01/06/17 02:30 Shock diphenhydramine Allergy Anxiety Verified 01/06/17 02:30 [From Benadryl] ketorolac [From Toradol] Allergy Chest Verified 01/06/17 02:30 Tightness metoclopramide [From Reglan] Allergy Anxiety Verified 01/06/17 02:30 Penicillins Allergy Anaphylactic Verified 01/06/17 02:30 Shock zolpidem [From Ambien] Allergy Hallucinati Verified 01/06/17 02:30 ons vicous lidocaine AdvReac Intermediate Vomiting Uncoded 01/06/17 02:30 Home Meds: Home Meds Ranitidine HCl [Zantac 75] 75 mg PO BID 12/11/16 [History] hydrOXYzine HCl [Atarax] 1 tab PO BID 12/26/16 [History] Past Medical History HEENT History: Reports: Impaired Vision Cardiovascular History: Reports: Heart Murmur, Other (See Below) Other Cardiovascular History: Palpatations in past. Gastrointestinal History: Reports: GERD Musculoskeletal History: Reports: Fracture Other Musculoskeletal History: L4-L6 fx. ankles neck, wrist. hands, upper Rt. arm, fx skull. Neurological History: Reports: Brain Injury, Concussion, Head Trauma, Migraines Psychiatric History: Reports: ADHD, Anxiety, Depression, Mood Swings, Panic Attack Hematologic History: Reports: Blood Transfusion(s) - Infectious Disease History Infectious Disease History: Reports: Chicken Pox - Past Surgical History GI Surgical History: Reports: Colon, Other (See Below) Other GI Surgeries/Procedures: 3 inches of colon removed as a child. Social & Family History - Family History Family Medical History: Noncontributory - Tobacco Use Smoking Status *Q: Current Every Day Smoker Years of Tobacco use: 20 Packs/Tins Daily: 0.1 Second Hand Smoke Exposure: No - Caffeine Use Caffeine Use: Reports: Energy Drinks, Soda, Tea Other Caffeine Use: energy drinks. - Recreational Drug Use Recreational Drug Use: No ED ROS ALLERGIC REACTION - Review of Systems Review Of Systems: See Below Constitutional: Reports: No Symptoms HEENT: Reports: Other (tongue swelling) Respiratory: Reports: No Symptoms Cardiovascular: Reports: No Symptoms Endocrine: Reports: No Symptoms GI/Abdominal: Reports: No Symptoms : Reports: No Symptoms Musculoskeletal: Reports: No Symptoms Skin: Reports: No Symptoms Neurological: Reports: No Symptoms Psychiatric: Reports: No Symptoms Hematologic/Lymphatic: Reports: No Symptoms Immunologic: Reports: No Symptoms ED EXAM GENERAL NO PERIP PULSE - Physical Exam Exam: See Below Exam Limited By: No Limitations General Appearance: Alert, WD/WN, No Apparent Distress Eye Exam: Bilateral Eye: EOMI, PERRL Ears: Normal External Exam Nose: Normal Inspection, Normal Mucosa Throat/Mouth: Normal Lips, Normal Teeth, Other (tongue swelling) Head: Atraumatic, Normocephalic Neck: Normal Inspection, Supple, Non-Tender Respiratory/Chest: No Respiratory Distress Cardiovascular: Normal Peripheral Pulses, Regular Rate, Rhythm GI/Abdominal: Normal Bowel Sounds Back Exam: Normal Inspection Extremities: Normal Inspection, Normal Range of Motion Neurological: Alert, Oriented, CN II-XII Intact, Normal Cognition Psychiatric: Normal Affect Skin Exam: Warm, Dry, Intact, Normal Color, No Rash Lymphatic: No Adenopathy Course - Orders/Labs/Meds Orders: Active Orders 24 hr Category Date Time Status Sodium Chloride 0.9% [Normal Saline] 1,000 ml Med 02/01/17 05:58 Active IV .BOLUS Medication Orders Sodium Chloride (Normal Saline) 1,000 mls @ 999 mls/hr IV .BOLUS ONE Stop: 02/01/17 06:58 Meds: Medications Generic Name Dose Route Start Last Admin Trade Name Freq PRN Reason Stop Dose Admin Sodium Chloride 1,000 mls @ 999 mls/hr 02/01/17 05:58 Normal Saline IV 02/01/17 06:58 .BOLUS ONE Discontinued Medications Generic Name Dose Route Start Last Admin Trade Name Armen PRN Reason Stop Dose Admin Methylprednisolone Sodium Succinate 125 mg 02/01/17 05:58 Solu-Medrol IVPUSH 02/01/17 05:59 ONETIME ONE Departure - Departure Time of Disposition: 06:15 Disposition: Home, Self-Care 01 Condition: Good Clinical Impression: Angioedema Qualifiers: Encounter type: subsequent encounter Qualified Code(s): T78.3XXD - Angioneurotic edema, subsequent encounter - Discharge Information Forms: ED Department Discharge Additional Instructions: Rest Increase Water intake Take the Medications s prescribed: MEDROL DOSE PACK 4mg # 1 Hydroxyzine 50mg BID # 15 F/U w/ PCP and Hogshead Stripper - My Orders Last 24 Hours: My Active Orders 02/01/17 05:58 Sodium Chloride 0.9% [Normal Saline] 1,000 ml IV .BOLUS - Assessment/Plan Last 24 Hours: My Active Orders 02/01/17 05:58 Sodium Chloride 0.9% [Normal Saline] 1,000 ml IV .BOLUS
[2017-02-01] MEDS ORDERED: diphenhydrAMINE 50 MG Cap PO ONE (07:08)
[2017-02-01] MEDS ORDERED: EPINEPHrine 1 MG/ML SDV IM ONE (07:09)
[2017-02-01 07:57] VITALS: BP 149/93
== END 2017-02-01 08:22 | disposition home or self-care (01) ==
LOC: DL.ED 05:52
DX: T78.3XXD Angioneurotic edema, subsequent encounter (principal); K21.9 Gastro-esophageal reflux disease without esophagitis; F32.9 Major depressive disorder, single episode, unspecified; F17.210 Nicotine dependence, cigarettes, uncomplicated; Z88.0 Allergy status to penicillin; Z88.1 Allergy status to other antibiotic agents; Z88.6 Allergy status to analgesic agent; Z88.8 Allergy status to other drugs, medicaments and biological substances
CPT/HCPCS: 96361; 96372; 96374; 99283; J0171; J2930; J7030; Q0163

== ENCOUNTER 2017-03-08 11:57 | Emergency (ER) | payer MEDICAID ==
[2017-03-08 12:05] VITALS: BP 148/99
[2017-03-08] MEDS ORDERED: Sodium Chloride 0.9% 10 ML Syringe FLUSH PRN (12:09)
--- NOTE | 2017-03-08 12:09 | EDM.PDOC ---
ED HPI GENERAL MEDICAL PROBLEM - General Chief Complaint: Allergic Reaction Stated Complaint: [id number] TOUNGE SWELLING HARD TO BREATHE Time Seen by Provider: 03/08/17 12:03 Source of Information: Reports: Patient, RN, RN Notes Reviewed History Limitations: Reports: No Limitations - History of Present Illness INITIAL COMMENTS - FREE TEXT/NARRATIVE: Pt presents to the ER with c/o tongue and lip swelling. He states this began approximately 1 1/2 hours ago. He states he injected himself with his epi pen at that time. He states he last took Zantac at 0300. He states he believes this is occurring from Sunkist soda. He has had this problem in the recent past. Pt denies fever or chills. He states he was diagnosed with pneumonia about 4 weeks ago, took 1 round of azithromycin, he is now on Cipro. He reports diarrhea from the Cipro. He states he is somewhat SOB. Patient states his neck began swelling last evening. Onset: Today, Sudden Onset Time: 10:30 Location: Reports: Head, Face, Neck Quality: Reports: Same as Previous Episode Severity: Moderate Improves with: Reports: None Worsens with: Reports: None Associated Symptoms: Reports: Shortness of Breath Oral/Mouth Pain Score (Numeric/FACES): 4 - Related Data Allergies Allergy/AdvReac Type Severity Reaction Status Date / Time amoxicillin Allergy Anaphylactic Verified 03/08/17 12:00 Shock diphenhydramine Allergy Anxiety Verified 03/08/17 12:00 [From Benadryl] ketorolac [From Toradol] Allergy Chest Verified 03/08/17 12:00 Tightness metoclopramide [From Reglan] Allergy Anxiety Verified 03/08/17 12:00 Penicillins Allergy Anaphylactic Verified 03/08/17 12:00 Shock zolpidem [From Ambien] Allergy Hallucinati Verified 03/08/17 12:00 ons vicous lidocaine AdvReac Intermediate Vomiting Uncoded 03/08/17 12:00 Home Meds: Home Meds Ranitidine HCl [Zantac 75] 75 mg PO BID 12/11/16 [History] Clindamycin HCl 300 mg PO TID 03/08/17 [History] Past Medical History HEENT History: Reports: Impaired Vision Cardiovascular History: Reports: Heart Murmur, Other (See Below) Other Cardiovascular History: Palpatations in past. Gastrointestinal History: Reports: GERD Musculoskeletal History: Reports: Fracture Other Musculoskeletal History: L4-L6 fx. ankles neck, wrist. hands, upper Rt. arm, fx skull. Neurological History: Reports: Brain Injury, Concussion, Head Trauma, Migraines Psychiatric History: Reports: ADHD, Anxiety, Depression, Mood Swings, Panic Attack Endocrine/Metabolic History: Reports: None Hematologic History: Reports: Blood Transfusion(s) Immunologic History: Reports: None Oncologic (Cancer) History: Reports: None Dermatologic History: Reports: Other (See Below) Other Dermatologic History: Allergic reaction to something unkown (sunkist). Swollen tongue and lip. - Infectious Disease History Infectious Disease History: Reports: Chicken Pox - Past Surgical History GI Surgical History: Reports: Colon, Other (See Below) Other GI Surgeries/Procedures: 3 inches of colon removed as a child. Social & Family History - Family History Family Medical History: Noncontributory - Tobacco Use Smoking Status *Q: Light Tobacco Smoker Years of Tobacco use: 5 Packs/Tins Daily: 0.5 Second Hand Smoke Exposure: No - Caffeine Use Caffeine Use: Reports: Energy Drinks, Soda, Tea Other Caffeine Use: energy drinks. - Recreational Drug Use Recreational Drug Use: No ED ROS ALLERGIC REACTION - Review of Systems Review Of Systems: ROS reveals no pertinent complaints other than HPI. ED EXAM GENERAL NO PERIP PULSE - Physical Exam Exam: See Below Exam Limited By: No Limitations General Appearance: Alert, WD/WN, Mild Distress Eye Exam: Bilateral Eye: EOMI, Normal Inspection Ears: Normal External Exam, Normal Canal, Hearing Grossly Normal, Normal TMs Nose: Normal Inspection, Normal Mucosa, No Blood Throat/Mouth: Inflammation, Other (tongue swelling and right upper lip swelling) Head: Atraumatic, Normocephalic Neck: Lymphadenopathy (L), Lymphadenopathy (R) Respiratory/Chest: No Respiratory Distress, Lungs Clear, Normal Breath Sounds, No Accessory Muscle Use, Chest Non-Tender Cardiovascular: Normal Peripheral Pulses, Regular Rate, Rhythm, No Edema, No Gallop, No JVD, No Murmur, No Rub GI/Abdominal: Normal Bowel Sounds, Soft, Non-Tender, No Organomegaly, No Distention, No Abnormal Bruit, No Mass (Male) Exam: Deferred Rectal (Males) Exam: Deferred Back Exam: Normal Inspection, Full Range of Motion, NT Extremities: Normal Inspection, Normal Range of Motion, Non-Tender, Normal Capillary Refill, No Pedal Edema Neurological: Alert, Oriented, CN II-XII Intact, Normal Cognition, Normal Gait, Normal Reflexes, No Motor/Sensory Deficits Psychiatric: Normal Affect, Normal Mood Lymphatic: Adenopathy (submandibular, anterior cervical, bilateral.) Course - Vital Signs Last Recorded V/S: Last Vital Signs Temp 96.6 F 03/08/17 12:03 Pulse 88 03/08/17 12:03 Resp 16 03/08/17 12:03 BP 148/99 H 03/08/17 12:03 Pulse Ox 100 03/08/17 12:03 - Orders/Labs/Meds Orders: Active Orders 24 hr Category Date Time Status Peripheral IV Care [RC] . DIRECTED Care 03/08/17 12:09 Active Peripheral IV Insertion Adult [OM.PC] Stat Oth 03/08/17 12:09 Ordered Labs: Laboratory Tests 03/08/17 03/08/17 Range/Units 12:12 12:12 WBC 8.5 (5.0-10.0) 10^3/uL RBC 4.69 (4.6-6.2) 10^6/uL Hgb 13.6 L (14.0-18.0) g/dL Hct 39.4 L (40.0-54.0) % MCV 84.0 (80-100) fL MCH 29.0 (27.0-34.0) pg MCHC 34.5 (33.0-35.0) g/dL Plt Count 321 (150-450) 10^3/uL Neut % (Auto) 49.9 (42.2-75.2) % Lymph % (Auto) 32.0 (20.5-50.1) % [place] % (Auto) 10.7 H (2-8) % Eos % (Auto) 7.2 H (1.0-3.0) % Baso % (Auto) 0.2 (0.0-1.0) % Sodium 137 (135-145) mmol/L Potassium 3.6 (3.6-5.0) mmol/L Chloride 105 (101-111) mmol/L Carbon Dioxide 25.0 (21.0-31.0) mmol/L Anion Gap 10.6 BUN 15 (7-18) mg/dL Creatinine 1.0 (0.6-1.3) mg/dL Est Cr Clr Drug Dosing 107.03 mL/min Estimated GFR (MDRD) > 60 BUN/Creatinine Ratio 15.00 Glucose 99 (74-105) mg/dL Calcium 8.9 (8.4-10.2) mg/dl Total Bilirubin 0.3 (0.2-1.0) mg/dL AST 29 (10-42) IU/L ALT 32 (10-60) IU/L Alkaline Phosphatase 68 (42-121) IU/L Total Protein 7.0 (6.7-8.2) g/dl Albumin 4.3 (3.2-5.5) g/dl Globulin 2.7 Albumin/Globulin Ratio 1.59 Meds: Medications Discontinued Medications Generic Name Dose Route Start Last Admin Trade Name Freq PRN Reason Stop Dose Admin Diphenhydramine HCl 50 mg 03/08/17 12:10 03/08/17 12:16 Benadryl PO 03/08/17 12:11 50 mg ONETIME ONE Administration Epinephrine HCl 0.5 mg 03/08/17 12:15 03/08/17 12:23 Adrenalin 1:1000 IM 03/08/17 12:16 0.5 mg ONETIME ONE Administration Epinephrine HCl 0.5 mg 03/08/17 13:06 03/08/17 13:14 Adrenalin 1:1000 IM 03/08/17 13:07 0.5 mg ONETIME ONE Administration Famotidine 20 mg 03/08/17 12:11 03/08/17 12:17 Pepcid IVPUSH 03/08/17 12:12 20 mg ONETIME ONE Administration Sodium Chloride 1,000 mls @ 999 mls/hr 03/08/17 12:15 03/08/17 12:19 Normal Saline IV 03/08/17 13:15 999 mls/hr .BOLUS ONE Administration Sodium Chloride 1,000 mls @ 999 mls/hr 03/08/17 12:57 03/08/17 13:02 Normal Saline IV 03/08/17 13:57 999 mls/hr .BOLUS ONE Administration Methylprednisolone Sodium Succinate 125 mg 03/08/17 12:12 03/08/17 12:18 Solu-Medrol IVPUSH 03/08/17 12:13 125 mg ONETIME ONE Administration Sodium Chloride 10 ml 03/08/17 12:09 03/08/17 12:19 Saline Flush FLUSH 10 ml ASDIRECTED PRN Administration Keep Vein Open - Re-Assessments/Exams Free Text/Narrative Re-Assessment/Exam: 03/08/17 15:03 Patient first agreed to be admitted observation, he then changed his mind. I told him my concern with him worsening again and wanting him to stay overnight observation. Pt refused. Pt signed out AMA. Departure - Departure Time of Disposition: 13:39 Disposition: Against Medical Advice 07 Condition: Fair Clinical Impression: Allergic reaction Qualifiers: Encounter type: initial encounter Qualified Code(s): T78.40XA - Allergy, unspecified, initial encounter Angioedema Qualifiers: Encounter type: subsequent encounter Qualified Code(s): T78.3XXD - Angioneurotic edema, subsequent encounter - Discharge Information Forms: ED Department Discharge Additional Instructions: Return to the ER with any worsening of condition - My Orders Last 24 Hours: My Active Orders 03/08/17 12:09 Peripheral IV Care [RC] . DIRECTED Peripheral IV Insertion Adult [OM.PC] Stat - Assessment/Plan Last 24 Hours: My Active Orders 03/08/17 12:09 Peripheral IV Care [RC] . DIRECTED Peripheral IV Insertion Adult [OM.PC] Stat
[2017-03-08] MEDS ORDERED: diphenhydrAMINE 50 MG Cap PO ONE (12:10)
[2017-03-08] MEDS ORDERED: Famotidine 20 MG/2 ML SDV IVPUSH ONE (12:11)
[2017-03-08] MEDS ORDERED: methylPREDNISolone Sodium Succinate 125 MG/2 ML SDV IVPUSH ONE (12:12)
[2017-03-08] MEDS ORDERED: EPINEPHrine 1 MG/ML SDV IM ONE ×2 (12:15→13:06)
[2017-03-08] MEDS ORDERED: Sodium Chloride 0.9% 1,000 ML IV ONE ×2 (12:15→12:57)
[2017-03-08 12:37] LABS: CHLORIDE,CL 105 mmol/L (101-111); SODIUM,NA 137 mmol/L (135-145)
== END 2017-03-08 14:05 | disposition left against medical advice (07) ==
LOC: DL.ED 11:57
DX: T78.3XXA Angioneurotic edema, initial encounter (principal); T44.5X5A Adverse effect of predominantly beta-adrenoreceptor agonists, initial encounter; T47.0X5A Adverse effect of histamine H2-receptor blockers, initial encounter; F17.210 Nicotine dependence, cigarettes, uncomplicated; Z88.1 Allergy status to other antibiotic agents; Z88.0 Allergy status to penicillin; Z88.6 Allergy status to analgesic agent; Z88.8 Allergy status to other drugs, medicaments and biological substances
CPT/HCPCS: 36415; 80053; 85025; 96361; 96372; 96374; 96375; 99285; J0171; J2930; J7030; J7050; Q0163; S0028

== ENCOUNTER 2017-05-18 02:04 | Emergency (ER) | payer MEDICAID ==
[2017-05-18 02:10] VITALS: BP 149/86
[2017-05-18 02:53] LABS: ANION GAP 11.7; CHLORIDE,CL 105 mmol/L (101-111); SODIUM,NA 137 mmol/L (135-145)
[2017-05-18] MEDS ORDERED: Sodium Chloride 0.9% 1,000 ML IV ONE (03:15)
--- NOTE | 2017-05-18 03:33 | EDM.PDOC ---
ED HPI GENERAL MEDICAL PROBLEM - General Chief Complaint: Chest Pain Stated Complaint: CHEST PAIN, CANT CATCH BREATH [id number] Time Seen by Provider: 05/18/17 02:20 Source of Information: Reports: Patient History Limitations: Reports: No Limitations - History of Present Illness INITIAL COMMENTS - FREE TEXT/NARRATIVE: ED with c/o severe dizziness and weakness with chest pain worsening over past 2 weeks. 2 syncopal episodes tonight where felt weak and coworkers lowered him to ground. Nofalls or trauma to head. Reports black stools 1-2 months ago but nothing since. no abdominal pain or vomiting. Patient states he has hx of hemangioma's in lower colon and around heart. Originally from [place] and moved here in last 9 months. Prior he had been having CT every year to 18months. part of colon removed as due to bleeding. Left Chest Pain Score (Numeric/FACES): 6 - Related Data Allergies Allergy/AdvReac Type Severity Reaction Status Date / Time amoxicillin Allergy Anaphylactic Verified 05/18/17 02:17 Shock diphenhydramine Allergy Anxiety Verified 05/18/17 02:17 [From Benadryl] ketorolac [From Toradol] Allergy Chest Verified 05/18/17 02:17 Tightness metoclopramide [From Reglan] Allergy Anxiety Verified 05/18/17 02:17 Penicillins Allergy Anaphylactic Verified 05/18/17 02:17 Shock zolpidem [From Ambien] Allergy Hallucinati Verified 05/18/17 02:17 ons vicous lidocaine AdvReac Intermediate Vomiting Uncoded 05/18/17 02:17 Home Meds: Home Meds Ranitidine HCl [Zantac 75] 75 mg PO BID 12/11/16 [History] Clindamycin HCl 300 mg PO TID 03/08/17 [History] Past Medical History HEENT History: Reports: Impaired Vision Cardiovascular History: Reports: Heart Murmur, Other (See Below) Other Cardiovascular History: Palpatations in past. Gastrointestinal History: Reports: GERD Musculoskeletal History: Reports: Fracture Other Musculoskeletal History: L4-L6 fx. ankles neck, wrist. hands, upper Rt. arm, fx skull. Neurological History: Reports: Brain Injury, Concussion, Head Trauma, Migraines Psychiatric History: Reports: ADHD, Anxiety, Depression, Mood Swings, Panic Attack Endocrine/Metabolic History: Reports: None Hematologic History: Reports: Blood Transfusion(s) Immunologic History: Reports: None Oncologic (Cancer) History: Reports: None Dermatologic History: Reports: Other (See Below) Other Dermatologic History: Allergic reaction to something unkown (sunkist). Swollen tongue and lip. - Infectious Disease History Infectious Disease History: Reports: Chicken Pox - Past Surgical History GI Surgical History: Reports: Colon, Other (See Below) Other GI Surgeries/Procedures: 3 inches of colon removed as a child. Social & Family History - Family History Family Medical History: Noncontributory - Tobacco Use Smoking Status *Q: Never Smoker Years of Tobacco use: 5 Packs/Tins Daily: 0.5 Second Hand Smoke Exposure: No - Caffeine Use Caffeine Use: Reports: Energy Drinks, Soda, Tea Other Caffeine Use: energy drinks. - Recreational Drug Use Recreational Drug Use: No ED ROS GENERAL - Review of Systems Review Of Systems: See Below Constitutional: Reports: Weakness, Fatigue HEENT: Reports: No Symptoms Respiratory: Reports: Shortness of Breath (worse with activity) Cardiovascular: Reports: Chest Pain, Lightheadedness, Palpitations ( random intervals of heart racing, per patient 90-140) GI/Abdominal: Reports: Hematochezia (1-2 months ago) : Reports: No Symptoms Musculoskeletal: Reports: No Symptoms Skin: Reports: No Symptoms Neurological: Reports: Dizziness Psychiatric: Reports: Anxiety (denies) ED EXAM, DIZZINESS - Physical Exam Exam: See Below Exam Limited By: No Limitations General Appearance: Alert, Anxious Eye Exam: Bilateral Eye: EOMI, PERRL Ears: Normal External Exam, Normal TMs Nose: Normal Inspection Throat/Mouth: Normal Inspection. No: Normal Gums (pale) Head Exam: Atraumatic, Normocephalic Neck: Normal Inspection. No: Carotid Bruit, Lymphadenopathy (L), Lymphadenopathy (R) Respiratory/Chest: No Respiratory Distress, Lungs Clear, Normal Breath Sounds Cardiovascular: Normal Peripheral Pulses, Regular Rate, Rhythm, Tachycardia (on admission) GI/Abdominal: Normal Bowel Sounds, Soft, Non-Tender Neurological: Alert, Normal Mood/Affect, Oriented x 3 Back Exam: Normal Inspection Extremities: Normal Inspection Psychiatric: Normal Affect Skin Exam: Warm, Dry, Intact, Pallor Course - Vital Signs Last Recorded V/S: Last Vital Signs Temp 98.4 F 02/19/18 02:06 Pulse 108 H 05/18/17 02:06 Resp 24 H 05/18/17 02:06 BP 149/86 H 05/18/17 02:06 Pulse Ox 100 05/18/17 02:06 - Orders/Labs/Meds Orders: Active Orders 24 hr Category Date Time Status EKG Documentation Completion [RC] STAT Care 05/18/17 02:18 Active Chest Abdomen Pelvis w wo Cont [CT] Urgent Exams 05/18/17 02:50 Stop Req Labs: Laboratory Tests 05/18/17 05/18/17 05/18/17 Range/Units 02:25 02:25 02:25 WBC 10.9 H (5.0-10.0) 10^3/uL RBC 2.46 L (4.6-6.2) 10^6/uL Hgb 7.1 L D (14.0-18.0) g/dL Hct 21.7 L (40.0-54.0) % MCV 88.2 D (80-100) fL MCH 28.9 (27.0-34.0) pg MCHC 32.7 L (33.0-35.0) g/dL Plt Count 593 H D (150-450) 10^3/uL Neut % (Auto) 69.7 (42.2-75.2) % Lymph % (Auto) 21.7 (20.5-50.1) % [place] % (Auto) 5.7 (2-8) % Eos % (Auto) 2.4 (1.0-3.0) % Baso % (Auto) 0.5 (0.0-1.0) % Sodium 137 (135-145) mmol/L Potassium 3.7 (3.6-5.0) mmol/L Chloride 105 (101-111) mmol/L Carbon Dioxide 24.0 (21.0-31.0) mmol/L Anion Gap 11.7 BUN 10 (7-18) mg/dL Creatinine 1.4 H (0.6-1.3) mg/dL Est Cr Clr Drug Dosing 76.45 mL/min Estimated GFR (MDRD) 59 BUN/Creatinine Ratio 7.14 Glucose 107 H (74-105) mg/dL Calcium 8.5 (8.4-10.2) mg/dl Total Bilirubin 0.5 (0.2-1.0) mg/dL AST 31 (10-42) IU/L ALT 44 (10-60) IU/L Alkaline Phosphatase 64 (42-121) IU/L Troponin I < 0.02 (0.00-0.02) ng/ml Total Protein 6.9 (6.7-8.2) g/dl Albumin 4.0 (3.2-5.5) g/dl Globulin 2.9 Albumin/Globulin Ratio 1.38 Ethyl Alcohol mg/dL Blood Type A POSITIVE Gel Antibody Screen Negative Crossmatch See Detail 05/18/17 Range/Units 02:25 WBC (5.0-10.0) 10^3/uL RBC (4.6-6.2) 10^6/uL Hgb (14.0-18.0) g/dL Hct (40.0-54.0) % MCV (80-100) fL MCH (27.0-34.0) pg MCHC (33.0-35.0) g/dL Plt Count (150-450) 10^3/uL Neut % (Auto) (42.2-75.2) % Lymph % (Auto) (20.5-50.1) % [place] % (Auto) (2-8) % Eos % (Auto) (1.0-3.0) % Baso % (Auto) (0.0-1.0) % Sodium (135-145) mmol/L Potassium (3.6-5.0) mmol/L Chloride (101-111) mmol/L Carbon Dioxide (21.0-31.0) mmol/L Anion Gap BUN (7-18) mg/dL Creatinine (0.6-1.3) mg/dL Est Cr Clr Drug Dosing mL/min Estimated GFR (MDRD) BUN/Creatinine Ratio Glucose (74-105) mg/dL Calcium (8.4-10.2) mg/dl Total Bilirubin (0.2-1.0) mg/dL AST (10-42) IU/L ALT (10-60) IU/L Alkaline Phosphatase (42-121) IU/L Troponin I (0.00-0.02) ng/ml Total Protein (6.7-8.2) g/dl Albumin (3.2-5.5) g/dl Globulin Albumin/Globulin Ratio Ethyl Alcohol < 5 mg/dL Blood Type Gel Antibody Screen Crossmatch Meds: Medications Discontinued Medications Generic Name Dose Route Start Last Admin Trade Name Armen PRN Reason Stop Dose Admin Sodium Chloride 1,000 mls @ 500 mls/hr 05/18/17 03:15 05/18/17 03:16 Normal Saline IV 05/18/17 05:14 500 mls/hr .BOLUS ONE Administration - Radiology Interpretation Free Text/Narrative:: CXR Clear lungs, no cardiomegaly - Re-Assessments/Exams Free Text/Narrative Re-Assessment/Exam: 05/18/17 03:40 Dr. Rex Meza accepting of patient for further evaluation of low hgb, chest pain, near syncope with patient reported hx of hemangiomas around heart and colon Tx via [facility] Departure - Departure Time of Disposition: 03:50 Disposition: DC/Tfer to Acute Hospital 02 Condition: Undetermined Clinical Impression: Syncope, near Anemia Qualifiers: Anemia type: unspecified type Qualified Code(s): D64.9 - Anemia, unspecified Chest pain Qualifiers: Chest pain type: other chest pain Qualified Code(s): R07.89 - Other chest pain - Discharge Information Referrals: Quan Nam MD [Primary Care Provider] - Forms: ED Department Discharge - My Orders Last 24 Hours: My Active Orders 05/18/17 02:18 EKG Documentation Completion [RC] STAT 05/18/17 02:50 Chest Abdomen Pelvis w wo Cont [CT] Urgent - Assessment/Plan Last 24 Hours: My Active Orders 05/18/17 02:18 EKG Documentation Completion [RC] STAT 05/18/17 02:50 Chest Abdomen Pelvis w wo Cont [CT] Urgent
--- NOTE | 2017-05-25 10:06 | EKG ---
05/18/2017- WILL RILEY - EKG per my reading shows sinus rhythm at the rate of 80s. [facility] /[id number]
== END 2017-05-18 03:50 ==
LOC: DL.ED 02:04
DX: R55 Syncope and collapse (principal); D64.9 Anemia, unspecified; R07.89 Other chest pain; Z88.1 Allergy status to other antibiotic agents; Z88.6 Allergy status to analgesic agent; Z88.8 Allergy status to other drugs, medicaments and biological substances; Z88.0 Allergy status to penicillin
CPT/HCPCS: 36415; 71045; 80053; 82272; 84484; 85025; 86850; 86900; 86901; 86920; 86922; 93005; 96360; 99285; G0480; J7030

== ENCOUNTER 2017-08-29 12:09 | Emergency (ER) | payer SELFPAY ==
[2017-08-29 12:22] VITALS: BP 143/81
[2017-08-29] MEDS ORDERED: Acetaminophen/HYDROcodone 325-10 MG Tab PO ONE (13:10)
--- NOTE | 2017-09-07 17:24 | EDM.PDOC ---
Scribed by Lauryn Trejo 09/07/17 0779 for Jairo Navarro MD ED HPI GENERAL MEDICAL PROBLEM - General Chief Complaint: Upper Extremity Injury/Pain Stated Complaint: ER WRIST Time Seen by Provider: 08/29/17 12:15 Source of Information: Reports: Patient, RN, RN Notes Reviewed History Limitations: Reports: No Limitations - History of Present Illness INITIAL COMMENTS - FREE TEXT/NARRATIVE: Patient presents to ER with the complaint that a dresser fell on his right wrist and hand. A dresser fell on his hand and wrist 3 days ago. He denies any other injury. Duration: Getting Worse Location: Reports: Upper Extremity, Right (wrist and hand) Quality: Reports: Ache Severity: Moderate Improves with: Reports: None Worsens with: Reports: None Associated Symptoms: Reports: No Other Symptoms Right Hand Pain Score (Numeric/FACES): 8 - Related Data Allergies Allergy/AdvReac Type Severity Reaction Status Date / Time amoxicillin Allergy Anaphylactic Verified 08/29/17 12:22 Shock diphenhydramine Allergy Anxiety Verified 08/29/17 12:22 [From Benadryl] ketorolac [From Toradol] Allergy Chest Verified 08/29/17 12:22 Tightness metoclopramide [From Reglan] Allergy Anxiety Verified 08/29/17 12:22 Penicillins Allergy Anaphylactic Verified 08/29/17 12:22 Shock zolpidem [From Ambien] Allergy Hallucinati Verified 08/29/17 12:22 ons vicous lidocaine AdvReac Intermediate Vomiting Uncoded 05/18/17 02:17 Home Meds: Home Meds Acetaminophen/Butalbital/Caff [Fioricet 325-50-40 MG] 1 tab PO Q6HR PRN [History] Past Medical History HEENT History: Reports: Impaired Vision Cardiovascular History: Reports: Heart Murmur, Other (See Below) Other Cardiovascular History: Palpatations in past. Gastrointestinal History: Reports: GERD Musculoskeletal History: Reports: Fracture Other Musculoskeletal History: L4-L6 fx. ankles neck, wrist. hands, upper Rt. arm, fx skull. Neurological History: Reports: Brain Injury, Concussion, Head Trauma, Migraines Psychiatric History: Reports: ADHD, Anxiety, Depression, Mood Swings, Panic Attack Endocrine/Metabolic History: Reports: None Hematologic History: Reports: Blood Transfusion(s) Immunologic History: Reports: None Oncologic (Cancer) History: Reports: None Dermatologic History: Reports: Other (See Below) Other Dermatologic History: Allergic reaction to something unkown (sunkist). Swollen tongue and lip. - Infectious Disease History Infectious Disease History: Reports: Chicken Pox - Past Surgical History GI Surgical History: Reports: Colon, Other (See Below) Other GI Surgeries/Procedures: 3 inches of colon removed as a child. Social & Family History - Family History Family Medical History: Noncontributory - Caffeine Use Caffeine Use: Reports: Energy Drinks, Soda, Tea Other Caffeine Use: energy drinks. Review of Systems - Review of Systems Review Of Systems: ROS reveals no pertinent complaints other than HPI. ED EXAM, GENERAL - Physical Exam Exam: See Below Exam Limited By: No Limitations General Appearance: Alert, WD/WN, No Apparent Distress Head: Atraumatic, Normocephalic Respiratory/Chest: No Respiratory Distress Extremities: Normal Capillary Refill, Arm Pain (right hand and wrist with mild soft tissue swelling. Faint bruising. Tender to palpation. No obvious deformity. ) Neurological: Alert, Oriented, CN II-XII Intact, Normal Cognition, Normal Gait, No Motor/Sensory Deficits Skin Exam: Warm, Dry, Intact Course - Vital Signs Last Recorded V/S: Last Vital Signs Temp 37.1 C 08/29/17 12:18 Pulse 85 08/29/17 12:18 Resp 14 08/29/17 12:18 BP 143/81 H 08/29/17 12:18 Pulse Ox 100 08/29/17 12:18 - Orders/Labs/Meds Meds: Medications Discontinued Medications Generic Name Dose Route Start Last Admin Trade Name Mooseq PRN Reason Stop Dose Admin Hydrocodone Bitart/Acetaminophen 1 tab 08/29/17 13:10 08/29/17 13:30 [place] 325-10 Mg PO 08/29/17 13:11 1 tab ONETIME ONE Administration - Radiology Interpretation Free Text/Narrative:: X-ray right hand: No acute fracture. See rad report. X-ray right wrist: No acute fracture. See rad report. Departure - Departure Time of Disposition: 13:31 Disposition: Home, Self-Care 01 Condition: Good Clinical Impression: Sprain of right wrist Qualifiers: Encounter type: initial encounter Qualified Code(s): S63.501A - Unspecified sprain of right wrist, initial encounter Sprain of right hand Qualifiers: Encounter type: initial encounter Qualified Code(s): S63.91XA - Sprain of unspecified part of right wrist and hand, initial encounter Contusion of right upper extremity Qualifiers: Encounter type: initial encounter Qualified Code(s): S40.021A - Contusion of right upper arm, initial encounter - Discharge Information Instructions: Contusion, [id number], Wrist Pain, Adult, [id number] Referrals: Sia Salazar NP [Primary Care Provider] - Forms: ED Department Discharge Additional Instructions: Activity as tolerated. Wear splint as needed for comfort. Follow up in clinic if not improving in 7-10 days. I have read and agree with the documentation that has been completed regarding this visit. By signing this record, I attest that the documentation was completed in my physical presence and is an accurate record of the encounter.
== END 2017-08-29 13:59 | disposition home or self-care (01) ==
LOC: DL.ED 12:09
DX: S63.91XA Sprain of unspecified part of right wrist and hand, initial encounter (principal); S40.021A Contusion of right upper arm, initial encounter; K21.9 Gastro-esophageal reflux disease without esophagitis; F41.9 Anxiety disorder, unspecified; F32.9 Major depressive disorder, single episode, unspecified; Z88.0 Allergy status to penicillin; Z88.5 Allergy status to narcotic agent; Z88.8 Allergy status to other drugs, medicaments and biological substances; W20.8XXA Other cause of strike by thrown, projected or falling object, initial encounter; Z79.899 Other long term (current) drug therapy
CPT/HCPCS: 73110; 73130; 99283; A9270

== ENCOUNTER 2017-12-26 06:43 | Emergency (ER) | payer SELFPAY ==
[2017-12-26 07:07] VITALS: BP 160/110
--- NOTE | 2017-12-26 07:08 | EDM.PDOC ---
ED HPI GENERAL MEDICAL PROBLEM - General Stated Complaint: hand pain [id number] Time Seen by Provider: 12/26/17 07:08 Source of Information: Reports: Patient, RN, RN Notes Reviewed History Limitations: Reports: No Limitations - History of Present Illness INITIAL COMMENTS - FREE TEXT/NARRATIVE: Pt to ER with c/o right shoulder pain. Patient states he was helping a friend move boxes yesterday when on box fell off a shelf. He states he swung his right arm at the box to protect himself. He states the box contained a metal safe. Patient states he did work last night but had difficulty turning residents. Patient states the pain goes down to mid tricep and up into the neck. He rates the pain 5/10 at rest. Patient denies numbness or tingling. Onset: Sudden Onset Date: 12/25/17 Duration: Getting Worse Location: Reports: Upper Extremity, Right Quality: Reports: Sharp, Stabbing Severity: Moderate Improves with: Reports: None Worsens with: Reports: None Associated Symptoms: Reports: No Other Symptoms Right Shoulder Pain Score (Numeric/FACES): 4 - Related Data Allergies Allergy/AdvReac Type Severity Reaction Status Date / Time amoxicillin Allergy Anaphylactic Verified 12/26/17 07:02 Shock diphenhydramine Allergy Anxiety Verified 12/26/17 07:02 [From Benadryl] ketorolac [From Toradol] Allergy Chest Verified 12/26/17 07:02 Tightness metoclopramide [From Reglan] Allergy Anxiety Verified 12/26/17 07:02 Penicillins Allergy Anaphylactic Verified 12/26/17 07:02 Shock zolpidem [From Ambien] Allergy Hallucinati Verified 12/26/17 07:02 ons vicous lidocaine AdvReac Intermediate Vomiting Uncoded 12/26/17 07:02 Home Meds: Home Meds Acetaminophen/Butalbital/Caff [Fioricet 325-50-40 MG] 1 tab PO Q6HR PRN [History] Past Medical History HEENT History: Reports: Impaired Vision Cardiovascular History: Reports: Heart Murmur, Other (See Below) Other Cardiovascular History: Palpatations in past. Gastrointestinal History: Reports: GERD Musculoskeletal History: Reports: Fracture Other Musculoskeletal History: L4-L6 fx. ankles neck, wrist. hands, upper Rt. arm, fx skull. Neurological History: Reports: Brain Injury, Concussion, Head Trauma, Migraines Psychiatric History: Reports: ADHD, Anxiety, Depression, Mood Swings, Panic Attack Endocrine/Metabolic History: Reports: None Hematologic History: Reports: Blood Transfusion(s) Immunologic History: Reports: None Oncologic (Cancer) History: Reports: None Dermatologic History: Reports: Other (See Below) Other Dermatologic History: Allergic reaction to something unkown (sunkist). Swollen tongue and lip. - Infectious Disease History Infectious Disease History: Reports: Chicken Pox - Past Surgical History GI Surgical History: Reports: Colon, Other (See Below) Other GI Surgeries/Procedures: 3 inches of colon removed as a child. Social & Family History - Family History Family Medical History: Noncontributory - Caffeine Use Caffeine Use: Reports: Energy Drinks, Soda, Tea Other Caffeine Use: energy drinks. Review of Systems - Review of Systems Review Of Systems: ROS reveals no pertinent complaints other than HPI. ED EXAM, GENERAL - Physical Exam Exam: See Below Exam Limited By: No Limitations General Appearance: Alert, WD/WN, Mild Distress Eye Exam: Bilateral Eye: EOMI, Normal Inspection Ears: Normal External Exam, Hearing Grossly Normal Nose: Normal Inspection Throat/Mouth: Normal Inspection, Normal Voice, No Airway Compromise Head: Atraumatic, Normocephalic Neck: Normal Inspection, Tender Lateral (right) Respiratory/Chest: No Respiratory Distress, Lungs Clear, Normal Breath Sounds, No Accessory Muscle Use, Chest Non-Tender Cardiovascular: Normal Peripheral Pulses, Regular Rate, Rhythm, No Edema, No Gallop, No JVD, No Murmur, No Rub Peripheral Pulses: 2+: Radial (L), Radial (R) GI/Abdominal: Normal Bowel Sounds, Soft, Non-Tender (Male) Exam: Deferred Rectal (Males) Exam: Deferred Back Exam: Normal Inspection, Full Range of Motion Extremities: Normal Inspection, Normal Capillary Refill, Arm Pain (right shoulder, right upper arm), Limited Range of Motion (right arm), Other (right shoulder lower than left shoulder) Neurological: Alert, Oriented, CN II-XII Intact, Normal Cognition, Normal Gait, Normal Reflexes, No Motor/Sensory Deficits Psychiatric: Normal Affect, Normal Mood Skin Exam: Warm, Dry, Intact, Normal Color, No Rash Lymphatic: No Adenopathy Course - Vital Signs Last Recorded V/S: Last Vital Signs Temp 97.6 F 12/26/17 07:02 Pulse 80 12/26/17 07:02 Resp 16 12/26/17 07:02 BP 160/110 H 12/26/17 07:02 Pulse Ox 99 12/26/17 07:02 - Orders/Labs/Meds Orders: Active Orders 24 hr Category Date Time Status Shoulder Comp Rt [CR] Urgent Exams 12/26/17 07:12 Taken - Radiology Interpretation Free Text/Narrative:: Right shoulder xray: No acute findings See rad report Departure - Departure Time of Disposition: 07:35 Disposition: Home, Self-Care 01 Condition: Fair Clinical Impression: Sprain of shoulder Qualifiers: Encounter type: initial encounter Shoulder sprain type: unspecified sprain Laterality: right Qualified Code(s): S43.401A - Unspecified sprain of right shoulder joint, initial encounter - Discharge Information *PRESCRIPTION DRUG MONITORING PROGRAM REVIEWED*: No *COPY OF PRESCRIPTION DRUG MONITORING REPORT IN PATIENT ABNER: No Instructions: Shoulder Pain, [id number], How to Use a Sling, [id number], Shoulder Sprain Forms: ED Department Discharge Additional Instructions: Follow up with your primary care facility for possible MRI Rest, Ice as tolerated May use Tylenol and/or Ibuprofen as directed for pain - My Orders Last 24 Hours: My Active Orders 12/26/17 07:12 Shoulder Comp Rt [CR] Urgent - Assessment/Plan Last 24 Hours: My Active Orders 12/26/17 07:12 Shoulder Comp Rt [CR] Urgent
== END 2017-12-26 07:43 | disposition home or self-care (01) ==
LOC: DL.ED 06:43
DX: S43.401A Unspecified sprain of right shoulder joint, initial encounter (principal); Z88.0 Allergy status to penicillin; Z88.5 Allergy status to narcotic agent; Z88.8 Allergy status to other drugs, medicaments and biological substances; Z88.1 Allergy status to other antibiotic agents; X50.1XXA Overexertion from prolonged static or awkward postures, initial encounter
CPT/HCPCS: 73030-RT; 99283

== ENCOUNTER 2018-04-24 00:25 | Emergency (ER) | payer BC ==
[2018-04-24 00:56] VITALS: BP 123/77
--- NOTE | 2018-04-24 01:11 | EDM.PDOC ---
ED HPI GENERAL MEDICAL PROBLEM - General Chief Complaint: Gastrointestinal Problem Stated Complaint: LEFT SIDE, COLON PAIN Time Seen by Provider: 04/24/18 01:07 Source of Information: Reports: Patient History Limitations: Reports: No Limitations - History of Present Illness INITIAL COMMENTS - FREE TEXT/NARRATIVE: states been having abd pain for awhile and is being Tx annel kovacs from PMD while waiting for GI in Apr. out of Rx. 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: Other Medication(s) Left Lower Abdominal Pain Score (Numeric/FACES): 9 - Related Data Allergies Allergy/AdvReac Type Severity Reaction Status Date / Time amoxicillin Allergy Anaphylactic Verified 04/24/18 02:08 Shock diphenhydramine Allergy Anxiety Verified 04/24/18 02:08 [From Benadryl] fentanyl Allergy Cannot Verified 04/24/18 02:08 Remember ketorolac [From Toradol] Allergy Chest Verified 04/24/18 02:08 Tightness metoclopramide [From Reglan] Allergy Anxiety Verified 04/24/18 02:08 Penicillins Allergy Anaphylactic Verified 04/24/18 02:08 Shock zolpidem [From Ambien] Allergy Hallucinati Verified 04/24/18 02:08 ons vicous lidocaine AdvReac Intermediate Vomiting Uncoded 04/24/18 02:08 Home Meds: Home Meds Acetaminophen/Butalbital/Caff [Fioricet 325-50-40 MG] 1 tab PO Q6HR PRN [History] Past Medical History HEENT History: Reports: Impaired Vision Cardiovascular History: Reports: Heart Murmur, Other (See Below) Other Cardiovascular History: Palpatations in past. Respiratory History: Reports: None Gastrointestinal History: Reports: GERD, Hiatal Hernia Genitourinary History: Reports: None Musculoskeletal History: Reports: Fracture Other Musculoskeletal History: L4-L6 fx. ankles neck, wrist. hands, upper Rt. arm, fx skull. Neurological History: Reports: Brain Injury, Concussion, Head Trauma, Migraines Psychiatric History: Reports: ADHD, Anxiety, Depression, Mood Swings, Panic Attack Endocrine/Metabolic History: Reports: None Hematologic History: Reports: Blood Transfusion(s) Immunologic History: Reports: None Oncologic (Cancer) History: Reports: None Dermatologic History: Reports: Other (See Below) Other Dermatologic History: Allergic reaction to something unkown (sunkist). Swollen tongue and lip. - Infectious Disease History Infectious Disease History: Reports: Chicken Pox - Past Surgical History Head Surgeries/Procedures: Reports: None GI Surgical History: Reports: Colon, EGD, Other (See Below) Other GI Surgeries/Procedures: 3 inches of colon removed as a child. Social & Family History - Family History Family Medical History: Noncontributory - Tobacco Use Smoking Status *Q: Unknown Ever Smoked - Caffeine Use Caffeine Use: Reports: Energy Drinks, Soda Other Caffeine Use: energy drinks. ED ROS GENERAL - Review of Systems Review Of Systems: ROS reveals no pertinent complaints other than HPI. ED EXAM, GI/ABD - Physical Exam Exam: See Below Exam Limited By: No Limitations General Appearance: Alert, WD/WN, Mild Distress, Other (upset) Throat/Mouth: Normal Voice, No Airway Compromise Head: Atraumatic Neck: Non-Tender, Full Range of Motion Respiratory/Chest: No Respiratory Distress Cardiovascular: Regular Rate, Rhythm GI/Abdominal Exam: Tender, Other (LLQ). No: Distended, Guarding, Rigid, Rebound Neurological: Alert, Oriented, Normal Cognition, Normal Gait, No Motor/Sensory Deficits Psychiatric: Tearful Skin Exam: Warm, Dry, Normal Color Lymphatic: No Adenopathy Course - Vital Signs Last Recorded V/S: Last Vital Signs Temp 36.4 C 04/24/18 00:49 Pulse 92 04/24/18 00:49 Resp 20 04/24/18 00:49 BP 123/77 04/24/18 00:49 Pulse Ox 100 04/24/18 00:49 - Orders/Labs/Meds Labs: Laboratory Tests 04/24/18 04/24/18 Range/Units 01:15 01:15 WBC 7.6 (5.0-10.0) 10^3/uL RBC 5.37 (4.6-6.2) 10^6/uL Hgb 14.5 D (14.0-18.0) g/dL Hct 43.9 (40.0-54.0) % MCV 81.8 (80-100) fL MCH 27.0 (27.0-34.0) pg MCHC 33.0 (33.0-35.0) g/dL Plt Count 290 (150-450) 10^3/uL Neut % (Auto) 72.6 (42.2-75.2) % Lymph % (Auto) 18.9 L (20.5-50.1) % [place] % (Auto) 6.1 (2-8) % Eos % (Auto) 2.0 (1.0-3.0) % Baso % (Auto) 0.4 (0.0-1.0) % Sodium 137 (135-145) mmol/L Potassium 4.2 (3.6-5.0) mmol/L Chloride 104 (101-111) mmol/L Carbon Dioxide 21.0 (21.0-31.0) mmol/L Anion Gap 16.2 BUN 15 (7-18) mg/dL Creatinine 1.1 (0.6-1.3) mg/dL Est Cr Clr Drug Dosing 90.14 mL/min Estimated GFR (MDRD) > 60 BUN/Creatinine Ratio 13.63 Glucose 103 (74-105) mg/dL Calcium 9.5 (8.4-10.2) mg/dl Total Bilirubin 0.8 (0.2-1.0) mg/dL AST 22 (10-42) IU/L ALT 18 (10-60) IU/L Alkaline Phosphatase 97 (42-121) IU/L Total Protein 8.0 (6.7-8.2) g/dl Albumin 4.6 (3.2-5.5) g/dl Globulin 3.4 Albumin/Globulin Ratio 1.35 Amylase 42 (28-100) U/L Lipase 30 (22-51) U/L - Re-Assessments/Exams Free Text/Narrative Re-Assessment/Exam: 04/24/18 02:33 results discussed with pt Departure - Departure Time of Disposition: 02:34 Disposition: Home, Self-Care 01 Condition: Good Clinical Impression: Abdominal pain - Discharge Information Instructions: Abdominal Pain, Adult, [id number] Forms: ED Department Discharge Additional Instructions: 1) rest 2) avoid solid foods next 24 hours 3) follow up at clinic 4) continue home meds
[2018-04-24 01:43] LABS: ANION GAP 16.2; CHLORIDE,CL 104 mmol/L (101-111); SODIUM,NA 137 mmol/L (135-145)
== END 2018-04-24 02:45 | disposition home or self-care (01) ==
LOC: DL.ED 00:25 → EEVIPCON 00:25 → DL.ED 02:45
DX: R10.32 Left lower quadrant pain (principal); Z88.1 Allergy status to other antibiotic agents; Z88.8 Allergy status to other drugs, medicaments and biological substances; Z88.0 Allergy status to penicillin
CPT/HCPCS: 36415; 80053; 82150; 83690; 85025; 99284

== ENCOUNTER 2018-07-02 15:36 | Emergency (ER) | payer BC ==
[2018-07-02 15:46] VITALS: BP 155/90
--- NOTE | 2018-07-02 17:11 | EDM.PDOC ---
Scribed by Lauryn Trejo 07/02/18 1641 for Josie Mendoza NP ED HPI GENERAL MEDICAL PROBLEM - General Chief Complaint: Wound Recheck Stated Complaint: PAIN AND INFECTION RT ARM [id number] Time Seen by Provider: 07/02/18 16:00 Source of Information: Reports: Patient, RN, RN Notes Reviewed History Limitations: Reports: No Limitations - History of Present Illness INITIAL COMMENTS - FREE TEXT/NARRATIVE: Patient presents to ER with complaint of severe right shoulder pain. He had right rotator cuff surgery on 06/23/18. About 3 to 4 days ago he spiked a fever up to 102.8. It broke last night. He has had nausea, vomiting, cold sweats and diarrhea x1. States he has been talking to ortho in [place] regarding fever and pain. He was instructed to come to ER. Onset: Gradual Duration: Constant Location: Reports: Generalized Quality: Reports: Ache Severity: Moderate Improves with: Reports: None Worsens with: Reports: None Associated Symptoms: Reports: No Other Symptoms - Related Data Allergies Allergy/AdvReac Type Severity Reaction Status Date / Time amoxicillin Allergy Anaphylactic Verified 07/02/18 15:43 Shock diphenhydramine Allergy Anxiety Verified 07/02/18 15:43 [From Benadryl] fentanyl Allergy Cannot Verified 07/02/18 15:43 Remember ketorolac [From Toradol] Allergy Chest Verified 07/02/18 15:43 Tightness metoclopramide [From Reglan] Allergy Anxiety Verified 07/02/18 15:43 Penicillins Allergy Anaphylactic Verified 07/02/18 15:43 Shock zolpidem [From Ambien] Allergy Hallucinati Verified 07/02/18 15:43 ons vicous lidocaine AdvReac Intermediate Vomiting Uncoded 07/02/18 15:43 Home Meds: Home Meds Acetaminophen/Butalbital/Caff [Fioricet 325-50-40 MG] 1 tab PO Q6HR PRN [History] Hydrocodone/Acetaminophen [Hydrocodon-Acetaminophen 5-325] 1 tab PO Q4H PRN 08/15 [History] Ranitidine [Zantac] 150 mg PO DAILY 07/02/18 [History] hydrOXYzine pamoate [Vistaril] 25 mg PO ASDIRECTED PRN 07/02/18 [History] Past Medical History HEENT History: Reports: Impaired Vision Cardiovascular History: Reports: Heart Murmur, Other (See Below) Other Cardiovascular History: Palpatations in past. Respiratory History: Reports: None Gastrointestinal History: Reports: GERD, Hiatal Hernia Genitourinary History: Reports: None Musculoskeletal History: Reports: Fracture Other Musculoskeletal History: L4-L6 fx. ankles neck, wrist. hands, upper Rt. arm, fx skull. Neurological History: Reports: Brain Injury, Concussion, Head Trauma, Migraines Psychiatric History: Reports: ADHD, Anxiety, Depression, Mood Swings, Panic Attack Endocrine/Metabolic History: Reports: None Hematologic History: Reports: Blood Transfusion(s) Immunologic History: Reports: None Oncologic (Cancer) History: Reports: None Dermatologic History: Reports: Other (See Below) Other Dermatologic History: Allergic reaction to something unkown (sunkist). Swollen tongue and lip. - Infectious Disease History Infectious Disease History: Reports: Chicken Pox - Past Surgical History Head Surgeries/Procedures: Reports: None GI Surgical History: Reports: Colon, EGD, Other (See Below) Other GI Surgeries/Procedures: 3 inches of colon removed as a child. Musculoskeletal Surgical History: Reports: Other (See Below) (right rotator cuff ) Social & Family History - Family History Family Medical History: Noncontributory - Caffeine Use Caffeine Use: Reports: Energy Drinks, Soda Other Caffeine Use: energy drinks. ED ROS GENERAL - Review of Systems Review Of Systems: ROS reveals no pertinent complaints other than HPI. ED EXAM, SKIN/RASH Exam: See Below Exam Limited By: No Limitations General Appearance: Alert, WD/WN, No Apparent Distress Eye Exam: Bilateral Eye: EOMI, Normal Inspection, PERRL Ears: Normal External Exam, Normal Canal, Hearing Grossly Normal, Normal TMs Nose: Normal Inspection, Normal Mucosa, No Blood Throat/Mouth: Normal Inspection, Normal Lips, Normal Teeth, Normal Gums, Normal Oropharynx, Normal Voice, No Airway Compromise Head: Atraumatic, Normocephalic Neck: Normal Inspection, Supple, Non-Tender, Full Range of Motion Respiratory/Chest: No Respiratory Distress, Lungs Clear, Normal Breath Sounds, No Accessory Muscle Use, Chest Non-Tender Cardiovascular: Normal Peripheral Pulses, Regular Rate, Rhythm, No Edema, No Gallop, No JVD, No Murmur, No Rub GI/Abdominal: Normal Bowel Sounds, Soft, Non-Tender, No Organomegaly, No Distention, No Abnormal Bruit, No Mass (Male) Exam: Deferred Rectal (Males) Exam: Deferred Back Exam: Normal Inspection, Full Range of Motion, NT Extremities: Other (decreased range of motion right arm/shoulder) Neurological: Alert, Oriented, CN II-XII Intact Psychiatric: Anxious Skin: Other (sutures intact) Lymphatic: No Adenopathy Course - Vital Signs Last Recorded V/S: Last Vital Signs Temp 97.5 F 07/02/18 15:45 Pulse 87 07/02/18 15:45 Resp 18 07/02/18 15:45 BP 155/90 H 07/02/18 15:45 Pulse Ox 98 07/02/18 15:45 - Orders/Labs/Meds Orders: Active Orders 24 hr Category Date Time Status COMPREHENSIVE METABOLIC PN,CMP [CHEM] Stat Lab 07/02/18 16:41 Received Labs: Laboratory Tests 07/02/18 Range/Units 16:41 WBC 11.1 H (5.0-10.0) 10^3/uL RBC 4.74 (4.6-6.2) 10^6/uL Hgb 13.6 L (14.0-18.0) g/dL Hct 40.1 (40.0-54.0) % MCV 84.6 (80-100) fL MCH 28.7 (27.0-34.0) pg MCHC 33.9 (33.0-35.0) g/dL Plt Count 545 H D (150-450) 10^3/uL Neut % (Auto) 61.0 (42.2-75.2) % Lymph % (Auto) 25.7 (20.5-50.1) % [place] % (Auto) 7.7 (2-8) % Eos % (Auto) 5.0 H (1.0-3.0) % Baso % (Auto) 0.6 (0.0-1.0) % - Re-Assessments/Exams Free Text/Narrative Re-Assessment/Exam: 07/02/18 17:[address] Boyd who states he just talked to the patient on the phone while he has been in the ER. He has ordered antibiotics, Zofran, and has changed some pain medications. He states he will see the patient in [place] on Thursday. Departure - Departure Time of Disposition: 16:55 Disposition: Home, Self-Care 01 Condition: Fair Clinical Impression: Right shoulder pain Qualifiers: Chronicity: unspecified Qualified Code(s): M25.511 - Pain in right shoulder - Discharge Information *PRESCRIPTION DRUG MONITORING PROGRAM REVIEWED*: No *COPY OF PRESCRIPTION DRUG MONITORING REPORT IN PATIENT ABNER: No Instructions: Shoulder Pain, [id number], Stitches, [place], or Adhesive Wound Closure, Oqlr-yz-Cash Referrals: Rufina Barrios MD [Primary Care Provider] - Forms: ED Department Discharge Additional Instructions: Take medications as directed by Dr. Boyd Follow up on Thursday in the Ortho clinic in [place] - My Orders Last 24 Hours: My Active Orders 07/02/18 16:41 COMPREHENSIVE METABOLIC PN,CMP [CHEM] Stat - Assessment/Plan Last 24 Hours: My Active Orders 07/02/18 16:41 COMPREHENSIVE METABOLIC PN,CMP [CHEM] Stat I have read and agree with the documentation that has been completed regarding this visit. By signing this record, I attest that the documentation was completed in my physical presence and is an accurate record of the encounter.
[2018-07-02 20:58] LABS: ANION GAP 16.7
== END 2018-07-02 17:01 | disposition home or self-care (01) ==
LOC: DL.ED 15:36
DX: M25.511 Pain in right shoulder (principal); K21.9 Gastro-esophageal reflux disease without esophagitis; F41.9 Anxiety disorder, unspecified; F32.9 Major depressive disorder, single episode, unspecified; F90.9 Attention-deficit hyperactivity disorder, unspecified type; Z79.899 Other long term (current) drug therapy; Z88.8 Allergy status to other drugs, medicaments and biological substances; Z88.6 Allergy status to analgesic agent; Z88.0 Allergy status to penicillin; Z88.1 Allergy status to other antibiotic agents
CPT/HCPCS: 36415; 80053; 85025; 99283

== ENCOUNTER 2019-01-15 10:34 | Emergency (ER) | payer SELFPAY ==
[2019-01-15 10:56] VITALS: BP 121/67; PULSE 76
--- NOTE | 2019-01-15 12:30 | EDM.PDOC ---
Scribed by Laruyn Trejo 01/15/19 1216 for Pearl Mann NP ED HPI GENERAL MEDICAL PROBLEM - General Chief Complaint: Respiratory Problem Stated Complaint: LUNGS FILLING UP WITH FLUID Time Seen by Provider: 01/15/19 12:00 Source of Information: Reports: Patient, RN, RN Notes Reviewed History Limitations: Reports: No Limitations - History of Present Illness INITIAL COMMENTS - FREE TEXT/NARRATIVE: Patient presents to ER with complaint of painful cough. Patient states he was seen 3 months ago for cough and bronchitis. He stopped taking med 2 weeks ago. He has had no fever. He vomited yesterday. No diarrhea. No history of asthma. Chest pain comes and goes but since last night it has been an 8/10 in the mid chest. He has a sore throat, chest pain, bilateral leg pains since Levofloxacin. He has also had a cough mild x2 since last night. He has also vomited. He is dizzy and weak. Onset: Gradual Duration: Constant Location: Reports: Chest Quality: Reports: Ache Severity: Mild Improves with: Reports: None Worsens with: Reports: None Associated Symptoms: Reports: No Other Symptoms Bilateral Upper Thoracic Pain Score (Numeric/FACES): 7 - Related Data Allergies Allergy/AdvReac Type Severity Reaction Status Date / Time amoxicillin Allergy Anaphylactic Verified 01/15/19 10:57 Shock diphenhydramine Allergy Anxiety Verified 01/15/19 10:57 [From Benadryl] fentanyl Allergy Cannot Verified 01/15/19 10:57 Remember ketorolac [From Toradol] Allergy Chest Verified 01/15/19 10:57 Tightness metoclopramide [From Reglan] Allergy Anxiety Verified 01/15/19 10:57 Penicillins Allergy Anaphylactic Verified 01/15/19 10:57 Shock zolpidem [From Ambien] Allergy Hallucinati Verified 01/15/19 10:57 ons vicous lidocaine AdvReac Intermediate Vomiting Uncoded 01/15/19 10:57 Home Meds: Home Meds Acetaminophen/Butalbital/Caff [Fioricet 325-50-40 MG] 1 tab PO Q6HR PRN [History] Ranitidine [Zantac] 150 mg PO DAILY PRN 07/02/18 [History] Past Medical History HEENT History: Reports: Impaired Vision Cardiovascular History: Reports: Heart Murmur, Other (See Below) Other Cardiovascular History: Palpatations in past. Respiratory History: Reports: None Gastrointestinal History: Reports: GERD, Hiatal Hernia Genitourinary History: Reports: None Musculoskeletal History: Reports: Fracture Other Musculoskeletal History: L4-L6 fx. ankles neck, wrist. hands, upper Rt. arm, fx skull, RIGHT foot screws Neurological History: Reports: Brain Injury, Concussion, Head Trauma, Migraines Psychiatric History: Reports: ADHD, Anxiety, Depression, Mood Swings, Panic Attack Endocrine/Metabolic History: Reports: None Hematologic History: Reports: Blood Transfusion(s) Immunologic History: Reports: None Oncologic (Cancer) History: Reports: None Dermatologic History: Reports: Other (See Below) Other Dermatologic History: Allergic reaction to something unkown (sunkist). Swollen tongue and lip. - Infectious Disease History Infectious Disease History: Reports: Chicken Pox - Past Surgical History Head Surgeries/Procedures: Reports: None GI Surgical History: Reports: Colon, EGD, Other (See Below) Other GI Surgeries/Procedures: 3 inches of colon removed as a child. Musculoskeletal Surgical History: Reports: Other (See Below) Social & Family History - Family History Family Medical History: Noncontributory - Tobacco Use Smoking Status *Q: Current Every Day Smoker Years of Tobacco use: 22 Packs/Tins Daily: 1.5 Second Hand Smoke Exposure: Yes - Caffeine Use Caffeine Use: Reports: Energy Drinks, Soda, Tea Other Caffeine Use: energy drinks. - Recreational Drug Use Recreational Drug Use: No ED ROS GENERAL - Review of Systems Review Of Systems: ROS reveals no pertinent complaints other than HPI. ED EXAM, GENERAL - Physical Exam Exam: See Below Exam Limited By: No Limitations General Appearance: Alert, WD/WN, No Apparent Distress Eye Exam: Bilateral Eye: EOMI, Normal Inspection, PERRL Ears: Normal External Exam, Normal Canal, Hearing Grossly Normal, Normal TMs Nose: Normal Inspection, Normal Mucosa, No Blood Throat/Mouth: Normal Inspection, Normal Lips, Normal Teeth, Normal Gums, Normal Oropharynx, Normal Voice, No Airway Compromise Head: Atraumatic, Normocephalic Neck: Normal Inspection, Supple, Non-Tender, Full Range of Motion Respiratory/Chest: No Respiratory Distress, Lungs Clear, Normal Breath Sounds, No Accessory Muscle Use, Chest Non-Tender Cardiovascular: Normal Peripheral Pulses, Regular Rate, Rhythm, No Edema, No Gallop, No JVD, No Murmur, No Rub GI/Abdominal: Normal Bowel Sounds, Soft, Non-Tender, No Organomegaly, No Distention, No Abnormal Bruit, No Mass (Male) Exam: Deferred Rectal (Males) Exam: Deferred Back Exam: Normal Inspection, Full Range of Motion, NT Extremities: Normal Inspection, Normal Range of Motion, Non-Tender, Normal Capillary Refill, No Pedal Edema Neurological: Alert, Oriented, CN II-XII Intact, Normal Cognition, Normal Gait, Normal Reflexes, No Motor/Sensory Deficits Psychiatric: Normal Affect, Normal Mood Skin Exam: Warm, Dry, Intact, Normal Color, No Rash Course - Vital Signs Last Recorded V/S: Last Vital Signs Temp 36.8 C 01/15/19 10:51 Pulse 76 01/15/19 10:51 Resp 18 01/15/19 10:51 BP 121/67 01/15/19 10:51 Pulse Ox 100 01/15/19 10:51 - Radiology Interpretation Free Text/Narrative:: 33 year old male with hx of bronchitis 3 months ago; was on doxy/levofloxacin. Main complaints today was sore throat, CP and burning with cough, vomited once last night, dizzy, weak. Stopped taking his levofloxacin due to kyle leg pain; still having issues with that and sees his PCP for it. Patient changed his story of symptoms when I went to examine him. Admits to having two days of Mid non-radiating CP; constant. Was placing orders for CP workup as explained to patient; he then stated he just had a phone call concerning an emergency with one of his children. Left AMA in a hurry; he signed form. - Re-Assessments/Exams Free Text/Narrative Re-Assessment/Exam: 01/15/19 12:30 Got emergent phone call and had to leave. Left AMA; signed paper. Departure - Departure Time of Disposition: 12:18 Disposition: Against Medical Advice 07 Clinical Impression: Left against medical advice - Discharge Information Forms: ED Department Discharge I have read and agree with the documentation that has been completed regarding this visit. By signing this record, I attest that the documentation was completed in my physical presence and is an accurate record of the encounter.
== END 2019-01-15 12:09 | disposition left against medical advice (07) ==
LOC: DL.ED 10:34
DX: R05 Cough (principal); R07.9 Chest pain, unspecified; K21.9 Gastro-esophageal reflux disease without esophagitis; F17.210 Nicotine dependence, cigarettes, uncomplicated; Z88.0 Allergy status to penicillin; Z88.1 Allergy status to other antibiotic agents; Z88.8 Allergy status to other drugs, medicaments and biological substances; Z79.899 Other long term (current) drug therapy
CPT/HCPCS: 99283

== ENCOUNTER 2019-06-06 14:11 | Emergency (ER) | payer SELFPAY ==
[2019-06-06 14:48] VITALS: BP 147/100
--- NOTE | 2019-06-06 16:10 | EDM.PDOC ---
ED HPI GENERAL MEDICAL PROBLEM - General Chief Complaint: Upper Extremity Injury/Pain Stated Complaint: FELL, INJURED RT SHOULDER Time Seen by Provider: 06/06/19 16:00 Source of Information: Reports: Patient History Limitations: Reports: No Limitations - History of Present Illness INITIAL COMMENTS - FREE TEXT/NARRATIVE: Patient presents to the ED by private vehicle with concerns of right shoulder pain. The patient states that he fell on the ice with his shoulder in abduction. The patient reports a sensation of feeling the shoulder dislocate and go back into place. He describes sharp pain, 5/10 with certain movements, better at rest. The patient reports rotator cuff repair by Dr. Jin approximately 1 year ago. He also reports receiving steroid injections in the right shoulder approximately 5 months ago. The patient is left handed. He reports working at [employer] in [place]. He does have work accomodations still in place from his prior shoulder injury. The patient denies elbow pain, numbness or tingling of the right upper extremity. Onset: Today Duration: Waxing/Waning Location: Reports: Upper Extremity, Right Quality: Reports: Sharp Severity: Moderate Improves with: Reports: Rest Worsens with: Reports: None Context: Reports: Other (fall) Treatments CERTIFIED PATHOLOGY ASSISTANT: Reports: Cold Therapy Right Shoulder Pain Score (Numeric/FACES): 6 - Related Data Allergies Allergy/AdvReac Type Severity Reaction Status Date / Time amoxicillin Allergy Anaphylactic Verified 06/06/19 14:49 Shock diphenhydramine Allergy Anxiety Verified 06/06/19 14:49 [From Benadryl] fentanyl Allergy Cannot Verified 06/06/19 14:49 Remember ketorolac [From Toradol] Allergy Chest Verified 06/06/19 14:49 Tightness metoclopramide [From Reglan] Allergy Anxiety Verified 06/06/19 14:49 Penicillins Allergy Anaphylactic Verified 06/06/19 14:49 Shock zolpidem [From Ambien] Allergy Hallucinati Verified 06/06/19 14:49 ons vicous lidocaine AdvReac Intermediate Vomiting Uncoded 06/06/19 14:49 Home Meds: Home Meds Acetaminophen/Butalbital/Caff [Fioricet 325-50-40 MG] 1 tab PO Q6HR PRN [History] Past Medical History HEENT History: Reports: Impaired Vision Cardiovascular History: Reports: Heart Murmur, Other (See Below) Other Cardiovascular History: Palpatations in past. Respiratory History: Reports: None Gastrointestinal History: Reports: GERD, Hiatal Hernia Genitourinary History: Reports: None Musculoskeletal History: Reports: Fracture Other Musculoskeletal History: L4-L6 fx. ankles neck, wrist. hands, upper Rt. arm, fx skull, RIGHT foot screws Neurological History: Reports: Brain Injury, Concussion, Head Trauma, Migraines Psychiatric History: Reports: ADHD, Anxiety, Depression, Mood Swings, Panic Attack Endocrine/Metabolic History: Reports: None Hematologic History: Reports: Blood Transfusion(s) Immunologic History: Reports: None Oncologic (Cancer) History: Reports: None Dermatologic History: Reports: Other (See Below) Other Dermatologic History: Allergic reaction to something unkown (sunkist). Swollen tongue and lip. - Infectious Disease History Infectious Disease History: Reports: Chicken Pox - Past Surgical History Head Surgeries/Procedures: Reports: None GI Surgical History: Reports: Colon, EGD, Other (See Below) Other GI Surgeries/Procedures: 3 inches of colon removed as a child. Musculoskeletal Surgical History: Reports: Other (See Below) Social & Family History - Family History Family Medical History: Noncontributory - Tobacco Use Smoking Status *Q: Never Smoker Second Hand Smoke Exposure: No - Caffeine Use Caffeine Use: Reports: Soda Other Caffeine Use: energy drinks. - Recreational Drug Use Recreational Drug Use: No Review of Systems - Review of Systems Review Of Systems: Comprehensive ROS is negative, except as noted in HPI. ED EXAM, GENERAL - Physical Exam Exam: See Below Exam Limited By: No Limitations General Appearance: Alert, No Apparent Distress Head: Atraumatic, Normocephalic Respiratory/Chest: No Respiratory Distress, Lungs Clear, Normal Breath Sounds Cardiovascular: Normal Peripheral Pulses, Regular Rate, Rhythm, No Edema, No Murmur Extremities: Normal Capillary Refill, Arm Pain (palpable tenderness diffuse throughout shoulder), Limited Range of Motion (decreased active range of motion in shoulder flexion, abduction), Other (weakness in empty can, ) Neurological: Alert, Oriented, No Motor/Sensory Deficits Psychiatric: Normal Affect, Normal Mood Skin Exam: Warm, Dry, Intact Course - Vital Signs Last Recorded V/S: Last Vital Signs Temp 97.1 F 06/06/19 14:47 Pulse 77 06/06/19 14:47 Resp 18 06/06/19 14:47 BP 147/100 H 06/06/19 14:47 Pulse Ox 99 06/06/19 14:47 - Orders/Labs/Meds Orders: Active Orders 24 hr Category Date Time Status Shoulder Comp Rt [CR] Urgent Exams 06/06/19 14:57 Taken - Radiology Interpretation Free Text/Narrative:: XR shoulder right negative for bony pathology Departure - Departure Time of Disposition: 16:12 Disposition: Home, Self-Care 01 Condition: Good Clinical Impression: Rotator cuff arthropathy of right shoulder Right shoulder pain Qualifiers: Chronicity: unspecified Qualified Code(s): M25.511 - Pain in right shoulder - Discharge Information *PRESCRIPTION DRUG MONITORING PROGRAM REVIEWED*: Not Applicable *COPY OF PRESCRIPTION DRUG MONITORING REPORT IN PATIENT ABNER: Not Applicable Instructions: Shoulder Range of Motion Exercises Additional Instructions: Follow-up with PCP, may recommend right shoulder MRI to assess rotator cuff pathology. Recommend follow-up with orthopedic provider for definitive management. Rx: [place] Ice to shoulder. Encourage passive range of motion with pulleys. Sepsis Event Note - Evaluation Sepsis Screening Result: No Definite Risk - Focused Exam Vital Signs: Vital Signs Temp Pulse Resp BP Pulse Ox 06/06/19 14:47 97.1 F 77 18 147/100 H 99 Date Exam was Performed: 06/06/19 Time Exam was Performed: 16:05
[2019-06-06 16:18] VITALS: PULSE 89
== END 2019-06-06 16:19 | disposition home or self-care (01) ==
LOC: DL.ED 14:11
DX: M12.811 Other specific arthropathies, not elsewhere classified, right shoulder (principal); Z88.1 Allergy status to other antibiotic agents; Z88.8 Allergy status to other drugs, medicaments and biological substances; Z88.0 Allergy status to penicillin; Z91.048 Other nonmedicinal substance allergy status; W19.XXXA Unspecified fall, initial encounter
CPT/HCPCS: 73030-RT; 99283

== ENCOUNTER 2019-08-19 02:12 | Emergency (ER) | payer SELFPAY ==
[2019-08-19] MEDS ORDERED: GI Cocktail Oral Solution 30 ML PO ONE (02:23)
--- NOTE | 2019-08-19 02:24 | EDM.PDOC ---
ED HPI GENERAL MEDICAL PROBLEM - General Chief Complaint: Chest Pain Stated Complaint: CHEST PAIN Time Seen by Provider: 08/19/19 02:23 Source of Information: Reports: Patient History Limitations: Reports: No Limitations - History of Present Illness INITIAL COMMENTS - FREE TEXT/NARRATIVE: onset mid chest pain after drinking some water and felt like it got stuck. Epigastric Pain Score (Numeric/FACES): 5 - Related Data Allergies Allergy/AdvReac Type Severity Reaction Status Date / Time amoxicillin Allergy Anaphylactic Verified 08/19/19 03:23 Shock diphenhydramine Allergy Anxiety Verified 08/19/19 03:23 [From Benadryl] fentanyl Allergy Cannot Verified 08/19/19 03:23 Remember ketorolac [From Toradol] Allergy Chest Verified 08/19/19 03:23 Tightness metoclopramide [From Reglan] Allergy Anxiety Verified 08/19/19 03:23 Penicillins Allergy Anaphylactic Verified 08/19/19 03:23 Shock zolpidem [From Ambien] Allergy Hallucinati Verified 08/19/19 03:23 ons vicous lidocaine AdvReac Intermediate Vomiting Uncoded 08/19/19 03:23 Home Meds: Home Meds Acetaminophen/Butalbital/Caff [Fioricet 325-50-40 MG] 1 tab PO Q6HR PRN [History] Past Medical History HEENT History: Reports: Impaired Vision Cardiovascular History: Reports: Heart Murmur, Other (See Below) Other Cardiovascular History: Palpatations in past. Respiratory History: Reports: None Gastrointestinal History: Reports: GERD, Hiatal Hernia Genitourinary History: Reports: None Musculoskeletal History: Reports: Fracture Other Musculoskeletal History: L4-L6 fx. ankles neck, wrist. hands, upper Rt. arm, fx skull, RIGHT foot screws Neurological History: Reports: Brain Injury, Concussion, Head Trauma, Migraines Psychiatric History: Reports: ADHD, Anxiety, Depression, Mood Swings, Panic Attack Endocrine/Metabolic History: Reports: None Hematologic History: Reports: Blood Transfusion(s) Immunologic History: Reports: None Oncologic (Cancer) History: Reports: None Dermatologic History: Reports: Other (See Below) Other Dermatologic History: Allergic reaction to something unkown (sunkist). Swollen tongue and lip. - Infectious Disease History Infectious Disease History: Reports: Chicken Pox - Past Surgical History Head Surgeries/Procedures: Reports: None GI Surgical History: Reports: Colon, EGD, Other (See Below) Other GI Surgeries/Procedures: 3 inches of colon removed as a child. Musculoskeletal Surgical History: Reports: Other (See Below) Social & Family History - Family History Family Medical History: Noncontributory - Caffeine Use Caffeine Use: Reports: Soda Other Caffeine Use: energy drinks. ED ROS GENERAL - Review of Systems Review Of Systems: Comprehensive ROS is negative, except as noted in HPI. ED EXAM, GENERAL - Physical Exam Exam: See Below Exam Limited By: No Limitations General Appearance: Alert, WD/WN, Anxious Ears: Hearing Grossly Normal Throat/Mouth: Normal Voice, No Airway Compromise Head: Atraumatic Neck: Non-Tender, Full Range of Motion Respiratory/Chest: No Respiratory Distress Cardiovascular: Regular Rate, Rhythm GI/Abdominal: Soft, Non-Tender. No: Distended, Guarding, Rigid, Rebound Neurological: Alert, Oriented, Normal Cognition, Normal Gait, No Motor/Sensory Deficits Psychiatric: Anxious Skin Exam: Warm, Dry, Normal Color Lymphatic: No Adenopathy Course - Vital Signs Last Recorded V/S: Last Vital Signs Temp 37.2 C 08/19/19 04:16 Pulse 74 08/19/19 04:16 Resp 18 08/19/19 04:16 BP 139/103 H 08/19/19 04:35 Pulse Ox 99 08/19/19 04:16 - Orders/Labs/Meds Labs: Laboratory Tests 08/19/19 08/19/19 08/19/19 Range/Units 03:05 03:05 03:05 WBC 7.3 (5.0-10.0) 10^3/uL RBC 4.75 (4.6-6.2) 10^6/uL Hgb 13.8 L (14.0-18.0) g/dL Hct 40.0 (40.0-54.0) % MCV 84.2 (80-100) fL MCH 29.1 (27.0-34.0) pg MCHC 34.5 (33.0-35.0) g/dL Plt Count 336 D (150-450) 10^3/uL Neut % (Auto) 36.6 L (42.2-75.2) % Lymph % (Auto) 41.6 (20.5-50.1) % [place] % (Auto) 9.7 H (2-8) % Eos % (Auto) 11.1 H (1.0-3.0) % Baso % (Auto) 1.0 (0.0-1.0) % D-Dimer, Quantitative 211 (0-400) ng/mL Sodium 137 (136-145) mmol/L Potassium 4.3 (3.5-5.1) mmol/L Chloride 100 (98-107) mmol/L Carbon Dioxide 29 (21-32) mmol/L Anion Gap 12.3 (7-13) mEq/L BUN 13 (7-18) mg/dL Creatinine 1.50 H (0.70-1.30) mg/dL Est Cr Clr Drug Dosing 70.05 mL/min Estimated GFR (MDRD) 54 BUN/Creatinine Ratio 8.7 (No establ ref range) Glucose 103 H (74-99) mg/dL Calcium 8.6 (8.5-10.1) mg/dL Total Bilirubin 0.2 (0.2-1.0) mg/dL AST 22 (15-37) U/L ALT 39 (16-63) U/L Alkaline Phosphatase 119 H (46-116) U/L Troponin I < 0.017 (0.000-0.056) ng/mL Total Protein 7.4 (6.4-8.2) g/dL Albumin 4.1 (3.4-5.0) g/dL Globulin 3.3 Albumin/Globulin Ratio 1.2 Meds: Medications Discontinued Medications Generic Name Dose Route Start Last Admin Trade Name Freq PRN Reason Stop Dose Admin Al Hydroxide/Mg Hydroxide 30 ml 08/19/19 02:23 08/19/19 02:38 Gi Cocktail PO 08/19/19 02:24 30 ml ONETIME ONE Administration Lorazepam 1 mg 08/19/19 04:04 08/19/19 04:14 Ativan PO 08/19/19 04:05 1 mg ONETIME ONE Administration - Re-Assessments/Exams Free Text/Narrative Re-Assessment/Exam: 08/19/19 04:04 results discussed with pt. Departure - Departure Time of Disposition: 04:04 Disposition: Home, Self-Care 01 Condition: Good Clinical Impression: Atypical chest pain Hypertension Qualifiers: Hypertension type: unspecified Qualified Code(s): I10 - Essential (primary) hypertension Instructions: Nonspecific Chest Pain, Adult, [id number] Forms: ED Department Discharge Additional Instructions: 1) rest and avoid lifting and straining next 24 hours 2) see family doctor tomorrow for BP meds Sepsis Event Note - Focused Exam Vital Signs: Vital Signs Temp Pulse Resp BP Pulse Ox 08/19/19 04:35 139/103 H 08/19/19 04:16 37.2 C 74 18 158/102 H 99 08/19/19 02:23 37.1 C 80 22 H 159/102 H 98 Date Exam was Performed: 08/19/19 Time Exam was Performed: 04:36
[2019-08-19 03:31] LABS: ANION GAP 12.3 mEq/L (7-13); CHLORIDE,CL 100 mmol/L (98-107); SODIUM,NA 137 mmol/L (136-145)
[2019-08-19] MEDS ORDERED: LORazepam 1 MG Tab PO ONE (04:04)
[2019-08-19 04:17] VITALS: PULSE 74
[2019-08-19 04:36] VITALS: BP 139/103
== END 2019-08-19 04:43 | disposition home or self-care (01) ==
LOC: DL.ED 02:12
DX: I10 Essential (primary) hypertension (principal); Z88.1 Allergy status to other antibiotic agents; Z88.5 Allergy status to narcotic agent; Z88.8 Allergy status to other drugs, medicaments and biological substances; Z88.0 Allergy status to penicillin
CPT/HCPCS: 36415; 80053; 84484; 85025; 85379; 99284; A9270-GY

== ENCOUNTER 2019-09-19 05:31 | Day surgery (SDC) | payer SELFPAY ==
[2019-09-19] MEDS ORDERED: Midazolam 1 MG/ML 2 ML SDV IV ONE ×7 (05:32→06:40)
[2019-09-19] MEDS ORDERED: fentaNYL 100 MCG/2 ML SDV IV ONE ×3 (05:32→06:36)
[2019-09-19] MEDS ORDERED: Sodium Chloride 0.9% 10 ML Syringe FLUSH PRN (06:00)
[2019-09-19] MEDS ORDERED: Dextrose 5%-0.45% NaCl 1,000 ML IV SCH (06:00)
[2019-09-19] MEDS ORDERED: fentaNYL 100 MCG/2 ML SDV ONE (06:15)
[2019-09-19] MEDS ORDERED: Midazolam 1 MG/ML 2 ML SDV ONE ×2 (06:15→08:16)
[2019-09-19 08:16] VITALS: BP 119/76; PULSE 70
--- NOTE | 2019-09-19 08:24 | OR ---
DATE: 09/19/2019 Esophagogastroduodenoscopy attempted with fentanyl 100 mcg intravenous and Versed 4 mg intravenous. The patient was quite agitated and violent pulling the scope out, so examination terminated. The patient is acceptable to have procedure rescheduled with propofol provided by [facility]. Pros and cons including side effects discussed in detail with him before, will follow diet protocol 09/25/2019, as prepared for today's exam, and rescheduled for 09/26/2019. [facility] /[id number]
== END 2019-09-19 07:14 | disposition home or self-care (01) ==
LOC: DL.ENDO 05:31
PROVIDERS: ATTEND Internal Medicine Gastroenterology
DX: R13.10 Dysphagia, unspecified (principal); R11.10 Vomiting, unspecified; R45.1 Restlessness and agitation; E66.09 Other obesity due to excess calories; S46.009A Unspecified injury of muscle(s) and tendon(s) of the rotator cuff of unspecified shoulder, initial encounter; Z53.09 Procedure and treatment not carried out because of other contraindication; Z87.19 Personal history of other diseases of the digestive system; Z86.69 Personal history of other diseases of the nervous system and sense organs; Z86.79 Personal history of other diseases of the circulatory system; Z86.018 Personal history of other benign neoplasm; Z98.890 Other specified postprocedural states; Z68.33 Body mass index [BMI] 33.0-33.9, adult; X58.XXXA Exposure to other specified factors, initial encounter
CPT/HCPCS: 43239; J2250; J3010; J7042; 43235

== ENCOUNTER 2019-09-26 06:26 | Day surgery (SDC) | payer SELFPAY ==
[~2019-09-26 06:26] MED LIST: Dextrose 5%-0.45% NaCl 1,000 ML IV SCH; Sodium Chloride 0.9% 10 ML Syringe FLUSH PRN
[2019-09-26] MEDS ORDERED: Propofol 200 MG/20 ML SDV IV ONE (06:27)
[2019-09-26 07:02] VITALS: BP 144/98; PULSE 64
[2019-09-26] MEDS ORDERED: Propofol 200 MG/20 ML SDV ONE ×3 (07:11→08:00)
[2019-09-26] MEDS ORDERED: Acetaminophen 500 MG Tab PO PRN (09:12)
--- NOTE | 2019-09-26 15:22 | OR ---
DATE: 09/26/2019 PROCEDURES: Esophagogastroduodenoscopy, multiple pinch biopsies and brush biopsy. INSTRUMENT USED: [id number]-HQ190 Olympus video panendoscope. PREMEDICATIONS: No oral or topical anesthesia used. Propofol anesthesia provided by [facility]. INDICATION: The patient with dysphagia as well as dyspepsia, unexplained and not responsive to medical measures, on long-term NSAIDs. Esophagogastroduodenoscopy is performed for detection of any active erosive lesions, Villalba esophagus and/or malignancy also under consideration, H. pylori status to be determined, esophageal dilatations if indicated, endoscopic hemostasis therapy if needed. DESCRIPTION OF PROCEDURE: The scope was passed with ease. Adequate visualization of the esophagus was made from proximal to distal areas. No upper esophageal lesions identified. No distal esophageal stricture. No uphill or downhill esophageal varices. No Alise-Allen tear. No evidence of erosive changes by [place] criteria. No esophageal polyp or tumor mass identified. Whitish exudate was noted in the distal esophagus. [place] biopsy was taken from the distal esophagus and sent for fungal smear as well as culture . No esophageal polyp or tumor mass identified. Z-line was seen at around 40 cm distal to the oral verge. Configuration consistent with grade 1 by ZAP classification. No proximal gastric varices noted. Gastric fundus examination by retroflexion showed no polypoid lesions. No gastric malignant mass or vascular ectasia identified. Scattered gastric antral ulcers were noted without bleeding from them. There was deformity of the pyloric channel as well as duodenal bulb. More than 1 cm sized as well as multiple smaller ulcers noted in the deformed duodenal bulb without bleeding from them. Visualized second part of the duodenum was unremarkable. Multiple pinch biopsies were taken from the gastric antrum and proximal body and sent for PyloriTek test for H. pylori and histopathology. Four-quadrant biopsies were taken from the distal and proximal esophagus and sent for any histopathologic evidence of esophageal eosinophilia. No bleeding was noted from any of the visualized areas at the completion of examination. Photographs were taken of the duodenal bulb, gastric antrum, fundus, and distal esophagus. IMPRESSION: 1. Active duodenal bulb ulcers. 2. Gastric antral ulcers. The patient tolerated the procedure well. [facility] /[id number]
== END 2019-09-26 09:54 | disposition home or self-care (01) ==
LOC: DL.ENDO 06:26
PROVIDERS: ATTEND Internal Medicine Gastroenterology
DX: K25.9 Gastric ulcer, unspecified as acute or chronic, without hemorrhage or perforation (principal); K26.9 Duodenal ulcer, unspecified as acute or chronic, without hemorrhage or perforation; S46.009A Unspecified injury of muscle(s) and tendon(s) of the rotator cuff of unspecified shoulder, initial encounter; E66.09 Other obesity due to excess calories; Z86.69 Personal history of other diseases of the nervous system and sense organs; Z87.19 Personal history of other diseases of the digestive system; Z88.0 Allergy status to penicillin; Z88.1 Allergy status to other antibiotic agents; Z86.2 Personal history of diseases of the blood and blood-forming organs and certain disorders involving the immune mechanism; Z90.49 Acquired absence of other specified parts of digestive tract; Z98.890 Other specified postprocedural states; Z85.828 Personal history of other malignant neoplasm of skin; Z68.33 Body mass index [BMI] 33.0-33.9, adult; X58.XXXA Exposure to other specified factors, initial encounter
CPT/HCPCS: 00731; 43239; 87077; 87102; 87205; A9270; J2704; J7042

== ENCOUNTER 2021-05-21 00:27 | Emergency (ER) | payer BC, MEDICAID ==
[2021-05-21] MEDS ORDERED: Acetaminophen 500 MG Tab PO ONE (01:47)
[2021-05-21 02:13] VITALS: BP 163/93; PULSE 98
== END 2021-05-21 02:15 | disposition home or self-care (01) ==
LOC: DL.ED 00:27
DX: S93.401A Sprain of unspecified ligament of right ankle, initial encounter (principal); Z88.0 Allergy status to penicillin; Z88.6 Allergy status to analgesic agent; Z88.8 Allergy status to other drugs, medicaments and biological substances; X50.1XXA Overexertion from prolonged static or awkward postures, initial encounter
CPT/HCPCS: 73610; 99283; A9270

== ENCOUNTER 2021-08-05 03:46 | Emergency (ER) | payer MEDICAID ==
[2021-08-05] MEDS ORDERED: Albuterol/Ipratropium 3.0-0.5 MG/3 ML Neb Soln NEB ONE (04:01)
[2021-08-05 04:09] VITALS: BP 123/82; PULSE 93
[2021-08-05] MEDS ORDERED: methylPREDNISolone Sodium Succinate 125 MG/2 ML SDV IVPUSH ONE (04:13)
[2021-08-05 04:40] LABS: CHLORIDE,CL 107 mmol/L (98-107); SODIUM,NA 141 mmol/L (136-145)
[2021-08-05 04:42] LABS: AMPHETAMINES,URINE POSITIVE (NEGATIVE); BARBITURATES,URINE NEGATIVE (NEGATIVE); BENZODIAZEPINE,URINE NEGATIVE (NEGATIVE); MDMA (ECSTASY), URINE NEGATIVE (NEGATIVE); METHADONE,URINE NEGATIVE (NEGATIVE); METHAMPHETAMINES,URINE NEGATIVE (NEGATIVE); OPIATES,URINE NEGATIVE (NEGATIVE); OXYCODONE,URINE NEGATIVE (NEGATIVE); PHENCYCLIDINE,URINE NEGATIVE (NEGATIVE); TCA,URINE POSITIVE (NEGATIVE)
== END 2021-08-05 05:01 | disposition home or self-care (01) ==
LOC: DL.ED 03:46
DX: J45.901 Unspecified asthma with (acute) exacerbation (principal); Z88.0 Allergy status to penicillin; Z88.8 Allergy status to other drugs, medicaments and biological substances; Z88.6 Allergy status to analgesic agent; Z88.5 Allergy status to narcotic agent
CPT/HCPCS: 36415; 71045; 80053; 80305-QW; 81003; 83605; 85025; 87040; 96374; 99284; 99285-25; J2930; J7620-GY

== ENCOUNTER 2021-09-25 19:13 | Emergency (ER) | payer MEDICAID ==
[2021-09-25] MEDS ORDERED: Ondansetron 4 MG Tab.DIS PO ONE (19:14)
[2021-09-25] MEDS ORDERED: Ondansetron 4 MG Tab.DIS ONE (20:12)
[2021-09-25 20:44] VITALS: BP 112/76; PULSE 56
== END 2021-09-25 20:30 | disposition home or self-care (01) ==
LOC: DL.ED 19:13
DX: R11.0 Nausea (principal); F17.210 Nicotine dependence, cigarettes, uncomplicated; Z88.0 Allergy status to penicillin; Z88.6 Allergy status to analgesic agent; Z88.8 Allergy status to other drugs, medicaments and biological substances
CPT/HCPCS: 99283; A9270

== ENCOUNTER 2022-02-04 08:16 | Emergency (ER) | payer MEDICAID ==
[2022-02-04 08:34] VITALS: BP 174/94; PULSE 88
[2022-02-04] MEDS ORDERED: Acetaminophen 325 MG Tab PO ONE (09:05)
== END 2022-02-04 09:20 | disposition home or self-care (01) ==
LOC: DL.ED 08:16
DX: S86.911A Strain of unspecified muscle(s) and tendon(s) at lower leg level, right leg, initial encounter (principal); Z88.0 Allergy status to penicillin; Z88.8 Allergy status to other drugs, medicaments and biological substances; W22.09XA Striking against other stationary object, initial encounter
CPT/HCPCS: 73562; 99283; A9270

== ENCOUNTER 2023-01-09 14:37 | Emergency (ER) | payer MEDICAID ==
[2023-01-09] MEDS ORDERED: Lactated Ringers 1,000 ML IV SCH (15:00)
[2023-01-09] MEDS ORDERED: Ondansetron 4 MG/2 ML SDV IVPUSH ONE (15:00)
[2023-01-09 15:05] LABS: BASOPHILS PERCENT AUTO 0.7 % (0.0-1.0); EOSINOPHILS PERCENT AUTO 4.1 % (1.0-3.0); HEMATOCRIT 43.4 % (40.0-54.0); HEMOGLOBIN 14.7 g/dL (14.0-18.0); MEAN CORPUSCULAR HEMOGLOBIN 28.5 pg (27.0-34.0); MEAN CORPUSCULAR HGB CONC 33.9 g/dL (33.0-35.0); MEAN CORPUSCULAR VOLUME 84.1 fL (80-100); MONOCYTES PERCENT AUTO 4.5 % (2-8); NEUTROPHILS PERCENT AUTO 69.7 % (42.2-75.2); PLATELET COUNT,PLT 344 10^3/uL (150-450); RED BLOOD CELL COUNT 5.16 10^6/uL (4.6-6.2); WHITE BLOOD CELL COUNT,WBC 10.3 10^3/uL (5.0-10.0)
[2023-01-09 15:07] VITALS: BP 153/116; PULSE 105
[2023-01-09] MEDS ORDERED: Iopamidol 612 MG/ML 100 ML Bottle IVPUSH ONE (15:15)
[2023-01-09 15:18] LABS: A/G RATIO 1.1; ALBUMIN 4.1 g/dL (3.4-5.0); ANION GAP 17.8 mEq/L (7-13); BILIRUBIN TOTAL 0.5 mg/dL (0.2-1.0); BUN/CREATININE RATIO 9.8 (No establ ref range); CREATININE 1.32 mg/dL (0.70-1.30); EST CRCL DRUG DOSING (CG) 76.62 mL/min; POTASSIUM,K 3.8 mmol/L (3.5-5.1); PROTEIN TOTAL,TP 7.7 g/dL (6.4-8.2)
[2023-01-09] MEDS ORDERED: Morphine 4 MG/ML Syringe IVPUSH ONE (15:27)
[2023-01-09] MEDS ORDERED: LORazepam 2 MG/ML SDV IVPUSH ONE (16:13)
[2023-01-09 16:17] LABS: APPEARANCE,URINE CLEAR (CLEAR); BILIRUBIN,URINE NEGATIVE (NEGATIVE); COLOR,URINE YELLOW (YELLOW); GLUCOSE,URINE NEGATIVE (NEGATIVE); KETONES,URINE NEGATIVE (NEGATIVE); LEUKOCYTE ESTERASE,URINE NEGATIVE (NEGATIVE); NITRITE,URINE NEGATIVE (NEGATIVE); OCCULT BLOOD,URINE NEGATIVE (NEGATIVE); PH,URINE 6.5 (5.0-9.0); PROTEIN,URINE NEGATIVE (NEGATIVE); UROBILINOGEN,URINE 0.2 mg/dL (0.2-1.0)
[2023-01-09 16:23] LABS: AMPHETAMINES,URINE NEGATIVE (NEGATIVE); BARBITURATES,URINE NEGATIVE (NEGATIVE); BENZODIAZEPINE,URINE NEGATIVE (NEGATIVE); MDMA (ECSTASY), URINE NEGATIVE (NEGATIVE); METHADONE,URINE NEGATIVE (NEGATIVE); METHAMPHETAMINES,URINE NEGATIVE (NEGATIVE); OPIATES,URINE POSITIVE (NEGATIVE); OXYCODONE,URINE NEGATIVE (NEGATIVE); PHENCYCLIDINE,URINE NEGATIVE (NEGATIVE); TCA,URINE NEGATIVE (NEGATIVE)
[2023-01-09] MEDS ORDERED: Aluminum Hydroxide/Magnesium Hydroxide/Simethicone Susp 30 ML Cup PO ONE (16:35)
== END 2023-01-09 17:07 | disposition home or self-care (01) ==
LOC: DL.ED 14:37
DX: K29.70 Gastritis, unspecified, without bleeding (principal); K29.80 Duodenitis without bleeding; J45.909 Unspecified asthma, uncomplicated; Z79.899 Other long term (current) drug therapy; Z88.0 Allergy status to penicillin; Z88.8 Allergy status to other drugs, medicaments and biological substances; Z88.1 Allergy status to other antibiotic agents
CPT/HCPCS: 36415; 74177; 80053; 80305-QW; 81003; 83690; 84484; 85025; 96361; 96374; 96375; 99285-25; A9270-GY; J2060; J2270; J2405; J7120; Q9967

== ENCOUNTER 2023-05-05 22:58 | Emergency (ER) | payer MEDICAID ==
[2023-05-05 23:54] VITALS: BP 158/107; PULSE 96
[2023-05-06] MEDS: Ondansetron 4 MG/2 ML SDV IVPUSH ONE (00:30)
[2023-05-06] MEDS: SODIUM CHLORIDE 0.9% IV ONE (00:44)
[2023-05-06] MEDS: VALPROATE SODIUM IV ONE (00:44)
[2023-05-06] MEDS: HYDROmorphone 1 MG/ML Syringe IVPUSH ONE (02:15)
== END 2023-05-06 02:56 | disposition home or self-care (01) ==
LOC: DL.ED 22:58
DX: G43.109 Migraine with aura, not intractable, without status migrainosus (principal); J45.909 Unspecified asthma, uncomplicated; Z79.899 Other long term (current) drug therapy; Z88.0 Allergy status to penicillin; Z88.8 Allergy status to other drugs, medicaments and biological substances; Z88.1 Allergy status to other antibiotic agents
CPT/HCPCS: 96365; 96375; 99283; J1170; J2405; J3490

== ENCOUNTER 2023-10-22 07:10 | Day surgery (SDC) | payer BC, MEDICAID ==
[~2023-10-22 07:10] MED LIST changes: -Dextrose 5%-0.45% NaCl 1,000 ML IV SCH; +Midazolam 1 MG/ML 2 ML SDV ONE; -Sodium Chloride 0.9% 10 ML Syringe FLUSH PRN; +fentaNYL 100 MCG/2 ML SDV ONE
[2023-10-22] MEDS: Dextrose 5%-0.45% NaCl 1,000 ML IV SCH (07:25)
[2023-10-22 11:24] VITALS: BP 123/76; PULSE 60
== END 2023-10-22 11:27 | disposition home or self-care (01) ==
LOC: DL.ENDO 07:10 → EEVIPCON 07:10 → MERGE 07:10 → DL.ENDO 11:27
PROVIDERS: ATTEND Internal Medicine Gastroenterology
DX: K29.50 Unspecified chronic gastritis without bleeding (principal); K29.80 Duodenitis without bleeding; N18.9 Chronic kidney disease, unspecified; Z79.899 Other long term (current) drug therapy
CPT/HCPCS: 00731; 87077; J7799

== ENCOUNTER 2024-03-06 12:34 | Emergency (ER) | payer MEDICAID ==
[2024-03-06] MEDS: Lidocaine 5% 700 MG Patch TOP ONE (13:20)
[2024-03-06 13:23] VITALS: BP 153/113; PULSE 96
[2024-03-06] MEDS: Dexamethasone 4 MG/ML SDV IM ONE (13:39)
[2024-03-06] MEDS: Ondansetron 4 MG Tab.DIS PO ONE (13:39)
[2024-03-06] MEDS: Morphine 4 MG/ML Syringe IM ONE (13:40)
== END 2024-03-06 14:35 | disposition home or self-care (01) ==
LOC: DL.ED 12:34
DX: U07.1 COVID-19 (principal); M25.512 Pain in left shoulder; I12.0 Hypertensive chronic kidney disease with stage 5 chronic kidney disease or end stage renal disease; N18.9 Chronic kidney disease, unspecified; F17.210 Nicotine dependence, cigarettes, uncomplicated; K21.9 Gastro-esophageal reflux disease without esophagitis; Z79.899 Other long term (current) drug therapy; Z88.0 Allergy status to penicillin; Z88.8 Allergy status to other drugs, medicaments and biological substances; Z91.018 Allergy to other foods; Z88.2 Allergy status to sulfonamides
CPT/HCPCS: 71046; 73030; 73060; 87428; 96372; 99283; A9270; J1100; J2270

== ENCOUNTER 2024-09-17 12:51 | Emergency (ER) | payer MEDICAID ==
[2024-09-17] MEDS ORDERED: Sodium Chloride 0.9% 10 ML Syringe FLUSH PRN (13:00)
[2024-09-17 13:10] LABS: APPEARANCE,URINE CLEAR (CLEAR); BILIRUBIN,URINE NEGATIVE (NEGATIVE); COLOR,URINE YELLOW (YELLOW); GLUCOSE,URINE NEGATIVE (NEGATIVE); KETONES,URINE NEGATIVE (NEGATIVE); LEUKOCYTE ESTERASE,URINE NEGATIVE (NEGATIVE); NITRITE,URINE NEGATIVE (NEGATIVE); OCCULT BLOOD,URINE TRACE-INTACT (NEGATIVE); PROTEIN,URINE 100 (NEGATIVE); UROBILINOGEN,URINE 0.2 mg/dL (0.2-1.0)
[2024-09-17 13:13] LABS: BASOPHILS PERCENT AUTO 0.4 % (0.0-1.0); HEMATOCRIT 43.1 % (40.0-54.0); HEMOGLOBIN 14.4 g/dL (14.0-18.0); LYMPHOCYTES PERCENT AUTO 21.7 % (20.5-50.1); MEAN CORPUSCULAR HEMOGLOBIN 27.2 pg (27.0-34.0); MEAN CORPUSCULAR HGB CONC 33.4 g/dL (33.0-35.0); MEAN CORPUSCULAR VOLUME 81.5 fL (80-100); MONOCYTES PERCENT AUTO 5.1 % (2-8); NEUTROPHILS PERCENT AUTO 70.8 % (42.2-75.2); PLATELET COUNT,PLT 391 10^3/uL (150-450); RED BLOOD CELL COUNT 5.29 10^6/uL (4.6-6.2); WHITE BLOOD CELL COUNT,WBC 10.7 10^3/uL (5.0-10.0)
[2024-09-17 13:33] LABS: PROTHROMBIN TIME 10.4 SEC (9.0-12.0); PTT,PARTIAL THROMBOPLSTIN TIME 22.8 SEC (22.0-34.0)
[2024-09-17 13:35] LABS: A/G RATIO 1.2; ALBUMIN 4.4 g/dL (3.4-5.0); ANION GAP 17.1 mEq/L (7-13); BILIRUBIN TOTAL 0.6 mg/dL (0.2-1.0); BUN/CREATININE RATIO 11.9 (No establ ref range); C-REACTIVE PROTEIN 1.01 ng/dL (<=0.50); CALCIUM 9.3 mg/dL (8.5-10.1); CREATININE 1.68 mg/dL (0.70-1.30); EST CRCL DRUG DOSING (CG) 59.62 mL/min; POTASSIUM,K 4.1 mmol/L (3.5-5.1)
[2024-09-17 13:38] LABS: LACTIC ACID 1.5 mmol/L (0.4-2.0)
[2024-09-17 13:40] LABS: BACTERIA,URINE FEW /HPF (0-FEW/HPF); EPITHELIAL CELLS,URINE RARE /HPF (NOT SEEN); WBC,URINE 0-5 /HPF (0-5/HPF)
[2024-09-17] MEDS: Iopamidol 612 MG/ML 100 ML Bottle IVPUSH ONE (13:43)
[2024-09-17] MEDS: HYDROmorphone 0.5 MG/0.5 ML Syringe IVPUSH ONE (13:56)
[2024-09-17] MEDS: Ondansetron 4 MG/2 ML SDV IVPUSH ONE (15:04)
[2024-09-17] MEDS: Sodium Chloride 0.9% 1,000 ML IV ONE (15:04)
[2024-09-17] MEDS: fentaNYL 100 MCG/2 ML SDV IVPUSH ONE ×2 (15:47→17:11)
[2024-09-17] MEDS: methylPREDNISolone Sodium Succinate 125 MG/2 ML SDV IVPUSH ONE (15:49)
[2024-09-17] MEDS: Acetaminophen 500 MG Tab PO ONE (16:22)
[2024-09-17] MEDS: Take Home: predniSONE 20 MG, 4 Tab Pack PO ONE (17:28)
[2024-09-17 18:30] VITALS: BP 172/103; PULSE 75
== END 2024-09-17 17:43 | disposition home or self-care (01) ==
LOC: DL.ED 12:51
DX: K52.9 Noninfective gastroenteritis and colitis, unspecified (principal); R19.5 Other fecal abnormalities; I12.9 Hypertensive chronic kidney disease with stage 1 through stage 4 chronic kidney disease, or unspecified chronic kidney disease; N18.9 Chronic kidney disease, unspecified; J45.909 Unspecified asthma, uncomplicated; K21.9 Gastro-esophageal reflux disease without esophagitis; Z86.16 Personal history of COVID-19; Z87.891 Personal history of nicotine dependence; Z88.0 Allergy status to penicillin; Z88.8 Allergy status to other drugs, medicaments and biological substances; Z88.4 Allergy status to anesthetic agent; Z88.5 Allergy status to narcotic agent; Z91.018 Allergy to other foods; Z79.51 Long term (current) use of inhaled steroids; Z79.899 Other long term (current) drug therapy
CPT/HCPCS: 36415; 74177; 80053; 81001; 83605; 83690; 85025; 85610; 85730; 86140; 96361; 96374; 96375; 96376; 99284; A9270; J2405; J2919; J3010; J7030; Q9967; J1171

== ENCOUNTER 2024-09-26 14:56 | Emergency (ER) | payer MEDICAID ==
[2024-09-26] MEDS: HYDROmorphone 1 MG/ML Syringe IVPUSH ONE (15:42)
[2024-09-26 15:45] LABS: BASOPHILS PERCENT AUTO 0.2 % (0.0-1.0); EOSINOPHILS PERCENT AUTO 0.7 % (1.0-3.0); HEMATOCRIT 25.5 % (40.0-54.0); HEMOGLOBIN 8.5 g/dL (14.0-18.0); LYMPHOCYTES PERCENT AUTO 20.5 % (20.5-50.1); MEAN CORPUSCULAR HGB CONC 33.3 g/dL (33.0-35.0); MEAN CORPUSCULAR VOLUME 83.9 fL (80-100); MONOCYTES PERCENT AUTO 7.6 % (2-8); PLATELET COUNT,PLT 388 10^3/uL (150-450); RED BLOOD CELL COUNT 3.04 10^6/uL (4.6-6.2); WHITE BLOOD CELL COUNT,WBC 13.8 10^3/uL (5.0-10.0)
[2024-09-26] MEDS: Lactated Ringers 1,000 ML IV SCH (15:53)
[2024-09-26 15:57] LABS: ALBUMIN 3.1 g/dL (3.4-5.0); ANION GAP 11.8 mEq/L (7-13); BILIRUBIN TOTAL 0.2 mg/dL (0.2-1.0); BUN/CREATININE RATIO 19.6 (No establ ref range); CALCIUM 8.5 mg/dL (8.5-10.1); CREATININE 1.53 mg/dL (0.70-1.30); EST CRCL DRUG DOSING (CG) 65.46 mL/min; POTASSIUM,K 3.8 mmol/L (3.5-5.1); PROTEIN TOTAL,TP 6.1 g/dL (6.4-8.2)
[2024-09-26 15:58] LABS: A/G RATIO 1.03; LACTIC ACID 1.9 mmol/L (0.4-2.0)
[2024-09-26] MEDS: Pantoprazole 40 MG in Sodium Chloride 0.9% 100 ML IV ONE (16:19)
[2024-09-26] MEDS: GI Cocktail Oral Solution 30 ML PO ONE (16:20)
[2024-09-26] MEDS: Pantoprazole 40 MG Vial IVPUSH ONE (16:28)
[2024-09-26] MEDS ORDERED: Pantoprazole 80 MG in Sodium Chloride 0.9% 100 ML IV SCH (16:30)
[2024-09-26 16:57] VITALS: BP 124/85; PULSE 59
== END 2024-09-26 17:55 ==
LOC: DL.ED 14:56
DX: K92.1 Melena (principal); I12.9 Hypertensive chronic kidney disease with stage 1 through stage 4 chronic kidney disease, or unspecified chronic kidney disease; J45.909 Unspecified asthma, uncomplicated; N18.9 Chronic kidney disease, unspecified; Z88.0 Allergy status to penicillin; Z88.1 Allergy status to other antibiotic agents; Z88.8 Allergy status to other drugs, medicaments and biological substances; Z79.899 Other long term (current) drug therapy; Z79.1 Long term (current) use of non-steroidal anti-inflammatories (NSAID); Z79.51 Long term (current) use of inhaled steroids; Z86.16 Personal history of COVID-19
CPT/HCPCS: 36415; 71045; 80053; 83605; 84484; 85025; 86850; 86900; 86901; 96361; 96365; 96375; 96376; 99285; 99291; A9270; J1171; J2470; J7120

== ENCOUNTER 2024-10-10 14:11 | Emergency (ER) | payer MEDICAID ==
[2024-10-10] MEDS ORDERED: Sodium Chloride 0.9% 10 ML Syringe FLUSH PRN (15:05)
[2024-10-10 15:20] LABS: BASOPHILS PERCENT AUTO 0.4 % (0.0-1.0); EOSINOPHILS PERCENT AUTO 3.6 % (1.0-3.0); LYMPHOCYTES PERCENT AUTO 10.1 % (20.5-50.1); MONOCYTES PERCENT AUTO 4.1 % (2-8); NEUTROPHILS PERCENT AUTO 81.8 % (42.2-75.2); PLATELET COUNT,PLT 520 10^3/uL (150-450); RED BLOOD CELL COUNT 3.81 10^6/uL (4.6-6.2); WHITE BLOOD CELL COUNT,WBC 7.3 10^3/uL (5.0-10.0)
[2024-10-10] MEDS: Ondansetron 4 MG/2 ML SDV IVPUSH ONE (15:21)
[2024-10-10 15:39] LABS: INR 1.1 (0.9-1.2); PTT,PARTIAL THROMBOPLSTIN TIME 23.3 SEC (22.0-34.0)
[2024-10-10 15:42] LABS: LACTIC ACID 1.8 mmol/L (0.4-2.0)
[2024-10-10 15:48] LABS: A/G RATIO 0.9; ALANINE AMINOTRANSFERASE,ALT 465.0 U/L (16-63); ASPARTATE AMNIOTRANSFERASE,AST 380.0 U/L (15-37); BILIRUBIN TOTAL 0.9 mg/dL (0.2-1.0); BLOOD UREA NITROGEN,BUN 15.0 mg/dL (7-18); CARBON DIOXIDE,CO2 24.0 mmol/L (21-32); CHLORIDE,CL 105.0 mmol/L (98-107); CREATININE 1.51 mg/dL (0.70-1.30); EST CRCL DRUG DOSING (CG) 66.33 mL/min; GLUCOSE RANDOM 109.0 mg/dL (70-99); POTASSIUM,K 4.8 mmol/L (3.5-5.1); PROTEIN TOTAL,TP 7.2 g/dL (6.4-8.2); SODIUM,NA 137.0 mmol/L (136-145)
[2024-10-10 15:50] LABS: ESTIMATED GFR 60.0 mL/min (>=60)
[2024-10-10] MEDS: Iopamidol 612 MG/ML 100 ML Bottle IVPUSH ONE (15:53)
[2024-10-10] MEDS: fentaNYL 100 MCG/2 ML SDV IVPUSH ONE (16:26)
[2024-10-10 16:50] LABS: APPEARANCE,URINE CLEAR (CLEAR); GLUCOSE,URINE NEGATIVE (NEGATIVE); OCCULT BLOOD,URINE NEGATIVE (NEGATIVE)
[2024-10-10] MEDS: Sucralfate Suspension 1 GM/10 ML Cup PO ONE (18:26)
[2024-10-10 19:20] VITALS: BP 131/91; PULSE 65
[2024-10-10] MEDS: Take Home: Ondansetron 4 MG Tab.DIS, 5 Tab Pack PO ONE (20:02)
== END 2024-10-10 19:48 | disposition home or self-care (01) ==
LOC: DL.ED 14:11
DX: K29.70 Gastritis, unspecified, without bleeding (principal); I12.9 Hypertensive chronic kidney disease with stage 1 through stage 4 chronic kidney disease, or unspecified chronic kidney disease; N18.9 Chronic kidney disease, unspecified; Z86.16 Personal history of COVID-19; Z88.0 Allergy status to penicillin; Z88.8 Allergy status to other drugs, medicaments and biological substances; Z91.018 Allergy to other foods; Z79.51 Long term (current) use of inhaled steroids; Z79.899 Other long term (current) drug therapy
CPT/HCPCS: 36415; 74177; 80053; 81003; 82272; 83605; 83690; 83735; 85025; 85610; 85730; 86140; 87040; 96361; 96372; 96374; 96375; 99284; A9270; J1171; J1630; J2405; J3010; J7030; Q9967

== ENCOUNTER 2025-01-08 18:10 | Emergency (ER) | payer MEDICAID ==
[2025-01-08] MEDS ORDERED: Sodium Chloride 0.9% 10 ML Syringe FLUSH PRN (18:29)
[2025-01-08] MEDS ORDERED: GI Cocktail Oral Solution 30 ML PO ONE (18:30)
[2025-01-08 18:40] LABS: BASOPHILS PERCENT AUTO 0.6 % (0.0-1.0); EOSINOPHILS PERCENT AUTO 2.5 % (1.0-3.0); LYMPHOCYTES PERCENT AUTO 21.6 % (20.5-50.1); MONOCYTES PERCENT AUTO 5.2 % (2-8); NEUTROPHILS PERCENT AUTO 70.1 % (42.2-75.2); PLATELET COUNT,PLT 714 10^3/uL (150-450); RED BLOOD CELL COUNT 4.92 10^6/uL (4.6-6.2); WHITE BLOOD CELL COUNT,WBC 10.2 10^3/uL (5.0-10.0)
[2025-01-08 18:52] VITALS: BP 134/84; PULSE 115
[2025-01-08 18:58] LABS: A/G RATIO 1.1; ALANINE AMINOTRANSFERASE,ALT 29.0 U/L (16-63); ASPARTATE AMNIOTRANSFERASE,AST 24.0 U/L (15-37); BILIRUBIN TOTAL 0.3 mg/dL (0.2-1.0); BLOOD UREA NITROGEN,BUN 15.0 mg/dL (7-18); CARBON DIOXIDE,CO2 23.0 mmol/L (21-32); CHLORIDE,CL 100.0 mmol/L (98-107); CREATININE 1.49 mg/dL (0.70-1.30); EST CRCL DRUG DOSING (CG) 66.56 mL/min; GLUCOSE RANDOM 115.0 mg/dL (70-99); POTASSIUM,K 3.3 mmol/L (3.5-5.1); PROTEIN TOTAL,TP 8.7 g/dL (6.4-8.2); SODIUM,NA 138.0 mmol/L (136-145)
[2025-01-08 19:01] LABS: ESTIMATED GFR 61.0 mL/min (>=60); LACTIC ACID 1.7 mmol/L (0.4-2.0)
[2025-01-08] MEDS: Dicyclomine 20 MG/2 ML SDV IM ONE (19:02)
[2025-01-08] MEDS: GI Cocktail Oral Solution 30 ML PO ONE (19:02)
[2025-01-08] MEDS: Ketorolac 30 MG/ML SDV IVPUSH ONE (19:02)
[2025-01-08] MEDS: Ondansetron 4 MG/2 ML SDV IVPUSH ONE (19:03)
[2025-01-08] MEDS ORDERED: Take Home: Ondansetron 4 MG Tab.DIS, 5 Tab Pack PO ONE (19:27)
== END 2025-01-08 19:40 | disposition home or self-care (01) ==
LOC: DL.ED 18:10
DX: K29.70 Gastritis, unspecified, without bleeding (principal); K21.9 Gastro-esophageal reflux disease without esophagitis; I12.9 Hypertensive chronic kidney disease with stage 1 through stage 4 chronic kidney disease, or unspecified chronic kidney disease; N18.9 Chronic kidney disease, unspecified; Z88.0 Allergy status to penicillin; Z88.8 Allergy status to other drugs, medicaments and biological substances; Z91.018 Allergy to other foods; Z79.899 Other long term (current) drug therapy; Z86.16 Personal history of COVID-19
CPT/HCPCS: 36415; 80053; 83605; 83690; 83735; 85025; 86140; 96372; 96374; 96375; 99284; A9270; J0500; J1308; J2405

== ENCOUNTER 2025-01-09 21:15 | Emergency (ER) | payer MEDICAID ==
[2025-01-09] MEDS ORDERED: Sodium Chloride 0.9% 10 ML Syringe FLUSH PRN (21:54)
[2025-01-09 22:07] LABS: BASOPHILS PERCENT AUTO 0.6 % (0.0-1.0); EOSINOPHILS PERCENT AUTO 0.8 % (1.0-3.0); LYMPHOCYTES PERCENT AUTO 22.2 % (20.5-50.1); MONOCYTES PERCENT AUTO 7.6 % (2-8); NEUTROPHILS PERCENT AUTO 68.8 % (42.2-75.2); PLATELET COUNT,PLT 647 10^3/uL (150-450); RED BLOOD CELL COUNT 4.38 10^6/uL (4.6-6.2); WHITE BLOOD CELL COUNT,WBC 10.8 10^3/uL (5.0-10.0)
[2025-01-09 22:27] LABS: A/G RATIO 1.1; ALANINE AMINOTRANSFERASE,ALT 27.0 U/L (16-63); ASPARTATE AMNIOTRANSFERASE,AST 32.0 U/L (15-37); BILIRUBIN TOTAL 0.1 mg/dL (0.2-1.0); BLOOD UREA NITROGEN,BUN 14.0 mg/dL (7-18); CARBON DIOXIDE,CO2 25.0 mmol/L (21-32); CHLORIDE,CL 101.0 mmol/L (98-107); CREATININE 1.35 mg/dL (0.70-1.30); EST CRCL DRUG DOSING (CG) 73.46 mL/min; GLUCOSE RANDOM 125.0 mg/dL (70-99); POTASSIUM,K 3.4 mmol/L (3.5-5.1); PROTEIN TOTAL,TP 7.9 g/dL (6.4-8.2); SODIUM,NA 137.0 mmol/L (136-145)
[2025-01-09 22:28] LABS: ESTIMATED GFR 68.0 mL/min (>=60)
[2025-01-09 22:30] LABS: LACTIC ACID 1.1 mmol/L (0.4-2.0)
[2025-01-09] MEDS: Iopamidol 755 Mg/ML 100 ML Bottle IVPUSH ONE (22:41)
[2025-01-09] MEDS: Lactated Ringers 1,000 ML IV ONE (22:59)
[2025-01-09] MEDS: Iopamidol 612 MG/ML 100 ML Bottle IVPUSH ONE (23:22)
[2025-01-10 00:22] LABS: APPEARANCE,URINE CLEAR (CLEAR); GLUCOSE,URINE NEGATIVE (NEGATIVE); OCCULT BLOOD,URINE NEGATIVE (NEGATIVE)
[2025-01-10] MEDS: Acetaminophen/HYDROcodone 325-5 MG Tab PO ONE (01:42)
[2025-01-10 01:54] VITALS: PULSE 78
[2025-01-10 01:59] VITALS: BP 157/97
== END 2025-01-10 02:01 | disposition home or self-care (01) ==
LOC: DL.ED 21:15
DX: K29.80 Duodenitis without bleeding (principal); D64.9 Anemia, unspecified; K21.9 Gastro-esophageal reflux disease without esophagitis; I12.9 Hypertensive chronic kidney disease with stage 1 through stage 4 chronic kidney disease, or unspecified chronic kidney disease; N18.9 Chronic kidney disease, unspecified; J45.909 Unspecified asthma, uncomplicated; F17.210 Nicotine dependence, cigarettes, uncomplicated; F17.290 Nicotine dependence, other tobacco product, uncomplicated; Z88.0 Allergy status to penicillin; Z88.8 Allergy status to other drugs, medicaments and biological substances; Z88.6 Allergy status to analgesic agent; Z88.5 Allergy status to narcotic agent; Z88.4 Allergy status to anesthetic agent; Z86.16 Personal history of COVID-19; Z91.018 Allergy to other foods; Z79.899 Other long term (current) drug therapy
CPT/HCPCS: 36415; 74177; 80053; 81003; 83605; 83690; 83735; 84484; 85025; 93010; 96361; 96374; 99284; A9270; J2470; J7120; Q0164; Q9967

== ENCOUNTER 2025-01-10 21:52 | Inpatient (IN) | payer MEDICAID ==
[2025-01-10 22:30] LABS: BASOPHILS PERCENT AUTO 0.6 % (0.0-1.0); EOSINOPHILS PERCENT AUTO 0.3 % (1.0-3.0); LYMPHOCYTES PERCENT AUTO 19.0 % (20.5-50.1); MONOCYTES PERCENT AUTO 4.5 % (2-8); NEUTROPHILS PERCENT AUTO 75.6 % (42.2-75.2); PLATELET COUNT,PLT 752 10^3/uL (150-450); RED BLOOD CELL COUNT 4.82 10^6/uL (4.6-6.2); WHITE BLOOD CELL COUNT,WBC 9.4 10^3/uL (5.0-10.0)
[2025-01-10] MEDS: Ondansetron 4 MG/2 ML SDV IVPUSH ONE (22:30)
[2025-01-10 22:53] LABS: A/G RATIO 1.1; ALANINE AMINOTRANSFERASE,ALT 28 U/L (16-63); ASPARTATE AMNIOTRANSFERASE,AST 30 U/L (15-37); BILIRUBIN TOTAL 0.2 mg/dL (0.2-1.0); BLOOD UREA NITROGEN,BUN 9 mg/dL (7-18); CARBON DIOXIDE,CO2 24 mmol/L (21-32); CHLORIDE,CL 101 mmol/L (98-107); CREATININE 1.06 mg/dL (0.70-1.30); EST CRCL DRUG DOSING (CG) 93.56 mL/min; GLUCOSE RANDOM 125 mg/dL (70-99); POTASSIUM,K 2.9 mmol/L (3.5-5.1); PROTEIN TOTAL,TP 8.4 g/dL (6.4-8.2); SODIUM,NA 139 mmol/L (136-145)
[2025-01-10 22:55] LABS: ESTIMATED GFR 92 mL/min (>=60); ETHANOL BLOOD MEDICAL < 3 mg/dL (0)
[2025-01-10 22:57] LABS: LACTIC ACID 1.3 mmol/L (0.4-2.0)
[2025-01-10] MEDS: Aluminum Hydroxide/Magnesium Hydroxide/Simethicone Susp 30 ML Cup PO ONE (23:14)
[2025-01-10 23:29] LABS: APPEARANCE,URINE CLEAR (CLEAR); GLUCOSE,URINE NEGATIVE (NEGATIVE); OCCULT BLOOD,URINE NEGATIVE (NEGATIVE)
[2025-01-10 23:46] LABS: AMPHETAMINES,URINE NEGATIVE (NEGATIVE); BARBITURATES,URINE NEGATIVE (NEGATIVE); MDMA (ECSTASY), URINE NEGATIVE (NEGATIVE); METHAMPHETAMINES,URINE NEGATIVE (NEGATIVE); OPIATES,URINE NEGATIVE (NEGATIVE); OXYCODONE,URINE NEGATIVE (NEGATIVE); PHENCYCLIDINE,URINE NEGATIVE (NEGATIVE); TCA,URINE NEGATIVE (NEGATIVE)
[2025-01-10] MEDS: GI Cocktail Oral Solution 30 ML PO ONE (23:51)
[2025-01-11] MEDS: Iopamidol 612 MG/ML 100 ML Bottle IVPUSH ONE (00:15)
[2025-01-11] MEDS: Ondansetron 4 MG/2 ML SDV IVPUSH ONE (01:25)
[2025-01-11] MEDS: fentaNYL 100 MCG/2 ML SDV IVPUSH ONE ×2 (03:42→06:25)
[2025-01-11] MEDS: Ketorolac 30 MG/ML SDV IVPUSH ONE (04:09)
[2025-01-11] MEDS: Acetaminophen/HYDROcodone 325-10 MG Tab PO ONE (05:00)
[2025-01-11] MEDS: Promethazine 25 MG/ML SDV IM ONE (05:46)
[2025-01-11 07:03] LABS: LACTIC ACID 1.2 mmol/L (0.4-2.0)
[2025-01-11] MEDS: cloNIDine 0.1 MG/Day Transdermal Patch TRDERM SCH (08:15)
[2025-01-11] MEDS: D5 1/2 NS w/ 20 mEq/L KCl 1,000 ML IV SCH (09:46)
[2025-01-11] MEDS: Ondansetron 4 MG/2 ML SDV IVPUSH PRN (09:48)
[2025-01-11] MEDS: Potassium Chloride 20 MEQ in Premix Bag 1 BAG IV ONE (11:08)
[2025-01-11 11:15] LABS: IRON,FE 11.0 ug/dL (65-175); PERCENT FE SATURATION 2.3 % (20.0-50.0)
[2025-01-11 11:37] LABS: FOLIC ACID 9.9 ng/mL (8.6-58.9); T4 FREE 0.63 ng/dL (0.76-1.46); TSH ULTRASENSITIVE 0.78 uIU/mL (0.36-3.74)
[2025-01-11] MEDS: Sodium Chloride 0.9% 10 ML Syringe FLUSH SCH (20:21)
[2025-01-11] MEDS: CHECK CLONIDINE TRDERM SCH (20:30)
[2025-01-11] MEDS: Sodium Chloride 0.9% 10 ML Syringe FLUSH PRN (20:53)
[2025-01-12] MEDS: cloNIDine 0.1 MG/Day Transdermal Patch TRDERM SCH (04:23)
[2025-01-12 06:43] LABS: BASOPHILS PERCENT AUTO 0.8 % (0.0-1.0); EOSINOPHILS PERCENT AUTO 2.2 % (1.0-3.0); LYMPHOCYTES PERCENT AUTO 30.9 % (20.5-50.1); MONOCYTES PERCENT AUTO 7.6 % (2-8); NEUTROPHILS PERCENT AUTO 58.5 % (42.2-75.2); PLATELET COUNT,PLT 595 10^3/uL (150-450); RED BLOOD CELL COUNT 4.06 10^6/uL (4.6-6.2); WHITE BLOOD CELL COUNT,WBC 9.3 10^3/uL (5.0-10.0)
[2025-01-12 07:07] LABS: A/G RATIO 1.1; ALANINE AMINOTRANSFERASE,ALT 22.0 U/L (16-63); ASPARTATE AMNIOTRANSFERASE,AST 19.0 U/L (15-37); BILIRUBIN DIRECT 0.1 mg/dL (0.0-0.2); BILIRUBIN INDIRECT 0.2; BILIRUBIN TOTAL 0.3 mg/dL (0.2-1.0); BLOOD UREA NITROGEN,BUN 7.0 mg/dL (7-18); CARBON DIOXIDE,CO2 25.0 mmol/L (21-32); CHLORIDE,CL 105.0 mmol/L (98-107); CREATININE 0.95 mg/dL (0.70-1.30); EST CRCL DRUG DOSING (CG) 104.4 mL/min; GLUCOSE RANDOM 114.0 mg/dL (70-99); PHOSPHORUS 1.6 mg/dL (2.6-4.7); POTASSIUM,K 3.2 mmol/L (3.5-5.1); PROTEIN TOTAL,TP 6.7 g/dL (6.4-8.2); SODIUM,NA 139.0 mmol/L (136-145)
[2025-01-12 07:08] LABS: ESTIMATED GFR 104.0 mL/min (>=60)
[2025-01-12 07:10] LABS: INR 1.0 (0.9-1.2)
[2025-01-12] MEDS ORDERED: AMPHETAMINE PO PRN (08:55)
[2025-01-12] MEDS ORDERED: [UNRECOGNIZED DRUG - OTHER] PO SCH (09:00)
[2025-01-12] MEDS ORDERED: AMPHETAMINE PO SCH (09:00)
[2025-01-12] MEDS ORDERED: DEXTROAMPHETAMINE PO SCH (09:00)
[2025-01-12] MEDS: oxyCODONE ER 20 MG TAB.ER PO ONE (09:40)
[2025-01-12] MEDS: Magnesium Sulfate 2 GM/50 mL 2 GM in Premix Bag 1 BAG IV ONE (09:48)
[2025-01-12] MEDS: Acetaminophen/Butalbital/Caffeine 325-50-40 MG Tab PO PRN (10:42)
[2025-01-12] MEDS: Phosphorus #1 250 MG Tab PO ONE (10:46)
[2025-01-12] MEDS: Potassium Chloride 10 MEQ Tab.ER PO ONE (10:47)
[2025-01-12] MEDS: Potassium Chloride 20 MEQ in Premix Bag 1 BAG IV ONE (10:49)
[2025-01-12] MEDS: oxyCODONE ER 10 MG TAB.ER PO SCH (20:44)
[2025-01-12] MEDS ORDERED: oxyCODONE ER 10 MG TAB.ER PO SCH (21:00)
[2025-01-13] MEDS: Acetaminophen/Butalbital/Caffeine 325-50-40 MG Tab PO PRN (02:26)
[2025-01-13] MEDS: Lactulose Soln 10 GM/15 ML 30 ML UD Cup PO STA (11:09)
[2025-01-13 12:41] VITALS: BP 150/93; PULSE 78
== END 2025-01-13 13:10 | disposition home or self-care (01) | DRG 392 ==
LOC: DL.ED 21:52 → DL.MS 01-11 06:24 → OBSVTOIN 01-12 15:45
PROVIDERS: ADMIT Internal Medicine; ATTEND Internal Medicine
DX: K29.80 Duodenitis without bleeding (principal); E87.20 Acidosis, unspecified; N17.9 Acute kidney failure, unspecified; K27.3 Acute peptic ulcer, site unspecified, without hemorrhage or perforation; K21.9 Gastro-esophageal reflux disease without esophagitis; H91.90 Unspecified hearing loss, unspecified ear; H54.7 Unspecified visual loss; G43.909 Migraine, unspecified, not intractable, without status migrainosus; F17.210 Nicotine dependence, cigarettes, uncomplicated; F43.10 Post-traumatic stress disorder, unspecified; F32.A Depression, unspecified; F41.9 Anxiety disorder, unspecified; E86.0 Dehydration; T73.0XXA Starvation, initial encounter; I12.9 Hypertensive chronic kidney disease with stage 1 through stage 4 chronic kidney disease, or unspecified chronic kidney disease; R73.9 Hyperglycemia, unspecified; F41.0 Panic disorder [episodic paroxysmal anxiety]; J45.909 Unspecified asthma, uncomplicated; R74.01 Elevation of levels of liver transaminase levels; N18.30 Chronic kidney disease, stage 3 unspecified; E83.39 Other disorders of phosphorus metabolism; G89.29 Other chronic pain; E87.6 Hypokalemia; Z71.6 Tobacco abuse counseling; Z87.820 Personal history of traumatic brain injury; Z88.1 Allergy status to other antibiotic agents; Z88.0 Allergy status to penicillin; Z88.8 Allergy status to other drugs, medicaments and biological substances; Z88.5 Allergy status to narcotic agent; Z91.018 Allergy to other foods; Z87.442 Personal history of urinary calculi; Z87.81 Personal history of (healed) traumatic fracture; Z86.16 Personal history of COVID-19; Z90.89 Acquired absence of other organs; Z98.890 Other specified postprocedural states; Z79.1 Long term (current) use of non-steroidal anti-inflammatories (NSAID); Z79.51 Long term (current) use of inhaled steroids; Z79.899 Other long term (current) drug therapy
CPT/HCPCS: 36415; 74177; 80048; 80053; 80076; 80305-QW; 80307; 81001; 82272; 82607; 82746; 83036; 83540; 83550; 83605; 83690; 83735; 84100; 84439; 84443; 84484; 85025; 85610; 86850; 86900; 86901; 87428-QW; 96361; 96365; 96366; 96367; 96372; 96375; 96376; 99284; 99285-25; A9270-GY; G0378; J1171; J1630; J2405; J2470; J2550; J2765; J3010; J3360; J3480; J7030; Q0138; Q9967

== ENCOUNTER 2025-01-20 16:00 | Emergency (ER) | payer MEDICAID ==
[2025-01-20 16:08] VITALS: PULSE 58
[2025-01-20] MEDS: Aluminum Hydroxide/Magnesium Hydroxide/Simethicone Susp 30 ML Cup PO ONE (16:19)
[2025-01-20 16:31] LABS: BASOPHILS PERCENT AUTO 0.4 % (0.0-1.0); EOSINOPHILS PERCENT AUTO 5.3 % (1.0-3.0); LYMPHOCYTES PERCENT AUTO 23.9 % (20.5-50.1); MONOCYTES PERCENT AUTO 6.7 % (2-8); NEUTROPHILS PERCENT AUTO 63.7 % (42.2-75.2); PLATELET COUNT,PLT 553 10^3/uL (150-450); RED BLOOD CELL COUNT 4.75 10^6/uL (4.6-6.2); WHITE BLOOD CELL COUNT,WBC 5.1 10^3/uL (5.0-10.0)
[2025-01-20] MEDS: Ondansetron 4 MG/2 ML SDV IVPUSH ONE (16:31)
[2025-01-20 16:52] LABS: A/G RATIO 1.2; ALANINE AMINOTRANSFERASE,ALT 28 U/L (16-63); ASPARTATE AMNIOTRANSFERASE,AST 19 U/L (15-37); BILIRUBIN TOTAL 0.5 mg/dL (0.2-1.0); BLOOD UREA NITROGEN,BUN 15 mg/dL (7-18); CARBON DIOXIDE,CO2 22 mmol/L (21-32); CHLORIDE,CL 105 mmol/L (98-107); CREATININE 1.00 mg/dL (0.70-1.30); GLUCOSE RANDOM 107 mg/dL (70-99); POTASSIUM,K 4.2 mmol/L (3.5-5.1); PROTEIN TOTAL,TP 7.4 g/dL (6.4-8.2); SODIUM,NA 137 mmol/L (136-145)
[2025-01-20 16:53] LABS: ESTIMATED GFR 98 mL/min (>=60)
[2025-01-20 16:54] LABS: ETHANOL BLOOD MEDICAL < 3 mg/dL (0)
[2025-01-20 16:55] LABS: LACTIC ACID 0.8 mmol/L (0.4-2.0)
[2025-01-20 17:59] LABS: APPEARANCE,URINE CLEAR (CLEAR); GLUCOSE,URINE NEGATIVE (NEGATIVE); OCCULT BLOOD,URINE NEGATIVE (NEGATIVE)
[2025-01-20 18:02] LABS: MDMA (ECSTASY), URINE NEGATIVE (NEGATIVE); METHAMPHETAMINES,URINE NEGATIVE (NEGATIVE); OPIATES,URINE POSITIVE (NEGATIVE)
[2025-01-20 18:03] LABS: AMPHETAMINES,URINE POSITIVE (NEGATIVE); BARBITURATES,URINE NEGATIVE (NEGATIVE); OXYCODONE,URINE NEGATIVE (NEGATIVE); PHENCYCLIDINE,URINE NEGATIVE (NEGATIVE); TCA,URINE NEGATIVE (NEGATIVE)
[2025-01-20] MEDS: Acetaminophen/HYDROcodone 325-10 MG Tab PO ONE (18:03)
[2025-01-20] MEDS ORDERED: Take Home: Acetaminophen/HYDROcodone 325-5 MG, 5 Tab Pack PO ONE (18:29)
[2025-01-20 21:03] VITALS: BP 141/86
== END 2025-01-20 19:00 | disposition home or self-care (01) ==
LOC: DL.ED 16:00
DX: R10.12 Left upper quadrant pain (principal); I12.9 Hypertensive chronic kidney disease with stage 1 through stage 4 chronic kidney disease, or unspecified chronic kidney disease; N18.9 Chronic kidney disease, unspecified; K21.9 Gastro-esophageal reflux disease without esophagitis; J45.909 Unspecified asthma, uncomplicated; E86.0 Dehydration; Z88.0 Allergy status to penicillin; Z88.5 Allergy status to narcotic agent; Z88.8 Allergy status to other drugs, medicaments and biological substances; Z79.899 Other long term (current) drug therapy; Z86.16 Personal history of COVID-19
CPT/HCPCS: 36415; 71045; 80053; 80305-QW; 80307; 81003; 82272; 83605; 83690; 83735; 85025; 96361; 96374; 96375; 99283; 99284-25; A9270-GY; J2270; J2405; J7030

== ENCOUNTER 2025-01-20 23:39 | Emergency (ER) | payer MEDICAID ==
[2025-01-21 02:20] VITALS: BP 156/99; PULSE 70
== END 2025-01-21 01:10 | disposition left against medical advice (07) ==
LOC: DL.ED 23:39
DX: R10.12 Left upper quadrant pain (principal); I12.9 Hypertensive chronic kidney disease with stage 1 through stage 4 chronic kidney disease, or unspecified chronic kidney disease; N18.9 Chronic kidney disease, unspecified; J45.909 Unspecified asthma, uncomplicated; K21.9 Gastro-esophageal reflux disease without esophagitis; Z86.16 Personal history of COVID-19; Z88.0 Allergy status to penicillin; Z88.5 Allergy status to narcotic agent; Z88.8 Allergy status to other drugs, medicaments and biological substances; Z88.4 Allergy status to anesthetic agent; Z91.018 Allergy to other foods; Z79.899 Other long term (current) drug therapy; Z76.5 Malingerer [conscious simulation]
CPT/HCPCS: 99283; 99284

== ENCOUNTER 2025-01-25 13:20 | Emergency (ER) | payer MEDICAID ==
[2025-01-25 13:54] LABS: APPEARANCE,URINE CLEAR (CLEAR); GLUCOSE,URINE NEGATIVE (NEGATIVE); OCCULT BLOOD,URINE NEGATIVE (NEGATIVE)
[2025-01-25 13:54] LABS: BASOPHILS PERCENT AUTO 0.5 % (0.0-1.0); EOSINOPHILS PERCENT AUTO 5.7 % (1.0-3.0); LYMPHOCYTES PERCENT AUTO 18.6 % (20.5-50.1); MONOCYTES PERCENT AUTO 4.2 % (2-8); NEUTROPHILS PERCENT AUTO 71.0 % (42.2-75.2); PLATELET COUNT,PLT 609 10^3/uL (150-450); RED BLOOD CELL COUNT 5.00 10^6/uL (4.6-6.2); WHITE BLOOD CELL COUNT,WBC 6.1 10^3/uL (5.0-10.0)
[2025-01-25 13:56] LABS: AMPHETAMINES,URINE NEGATIVE (NEGATIVE); BARBITURATES,URINE NEGATIVE (NEGATIVE); MDMA (ECSTASY), URINE NEGATIVE (NEGATIVE); METHAMPHETAMINES,URINE NEGATIVE (NEGATIVE); OPIATES,URINE NEGATIVE (NEGATIVE); OXYCODONE,URINE NEGATIVE (NEGATIVE); PHENCYCLIDINE,URINE NEGATIVE (NEGATIVE); TCA,URINE NEGATIVE (NEGATIVE)
[2025-01-25] MEDS: Lactated Ringers 1,000 ML IV ONE (13:56)
[2025-01-25 14:14] LABS: A/G RATIO 1.4; ALANINE AMINOTRANSFERASE,ALT 32.0 U/L (16-63); ASPARTATE AMNIOTRANSFERASE,AST 14.0 U/L (15-37); BILIRUBIN TOTAL 0.4 mg/dL (0.2-1.0); BLOOD UREA NITROGEN,BUN 13.0 mg/dL (7-18); CARBON DIOXIDE,CO2 17.0 mmol/L (21-32); CHLORIDE,CL 104.0 mmol/L (98-107); CREATININE 1.0 mg/dL (0.70-1.30); EST CRCL DRUG DOSING (CG) 99.18 mL/min; ESTIMATED GFR 98.0 mL/min (>=60); GLUCOSE RANDOM 109.0 mg/dL (70-99); POTASSIUM,K 4.4 mmol/L (3.5-5.1); PROTEIN TOTAL,TP 7.8 g/dL (6.4-8.2); SODIUM,NA 137.0 mmol/L (136-145)
[2025-01-25] MEDS: Aluminum Hydroxide/Magnesium Hydroxide/Simethicone Susp 30 ML Cup PO ONE (14:44)
[2025-01-25] MEDS: Dicyclomine 20 MG/2 ML SDV IM ONE (15:31)
[2025-01-25 15:37] VITALS: BP 164/82; PULSE 68
== END 2025-01-25 16:02 | disposition home or self-care (01) ==
LOC: DL.ED 13:20
DX: R10.12 Left upper quadrant pain (principal); I12.9 Hypertensive chronic kidney disease with stage 1 through stage 4 chronic kidney disease, or unspecified chronic kidney disease; N18.9 Chronic kidney disease, unspecified; Z88.0 Allergy status to penicillin; K21.9 Gastro-esophageal reflux disease without esophagitis; Z91.018 Allergy to other foods; Z88.5 Allergy status to narcotic agent; Z79.899 Other long term (current) drug therapy
CPT/HCPCS: 36415; 51700; 80053; 80305-QW; 81003; 83690; 85025; 96361; 96372; 96374; 99284-25; A9270-GY; J0500; J1308; J1630; J7120